=== PATIENT | male | born 1995 | race Caucasian/White ===

== ENCOUNTER 2017-08-04 17:15 | Emergency (ER) | payer BC ==
[~2017-08-04] VITALS: Ht 167.6 cm; Wt 56.4 kg
[2017-08-04 17:19] VITALS: BP 109/62
[2017-08-04] MEDS ORDERED: SULF1TAB49 PO (23:55)
[2017-08-04] MEDS ORDERED: CEPH500C5 PO (23:55)
== END 2017-08-04 23:24 | disposition left against medical advice (07) ==
LOC: ER 17:15
DX: L02.31 Cutaneous abscess of buttock (principal); Z53.21 Procedure and treatment not carried out due to patient leaving prior to being seen by health care provider

== ENCOUNTER 2017-08-04 23:28 | Emergency (ER) | payer BC ==
[~2017-08-04] VITALS: Ht 170.2 cm; Wt 57.0 kg
[2017-08-04 23:32] VITALS: BP 107/70
[2017-08-04] MEDS ORDERED: CEPH500C5 PO (23:55)
[2017-08-04] MEDS ORDERED: SULF1TAB49 PO (23:55)
[2017-08-04] MEDS ORDERED: LIDOcaine 1.5% w/epinephrine 1:200,000 5ml ampul IJ ONE (23:55)
== END 2017-08-05 00:24 | disposition home or self-care (01) ==
LOC: ER 23:29
DX: L02.31 Cutaneous abscess of buttock (principal)
CPT/HCPCS: 10060; 99283; J3490

== ENCOUNTER 2018-01-02 02:23 | Emergency (ER) | payer BC ==
[~2018-01-02] VITALS: Ht 170.2 cm; Wt 42.0 kg
[~2018-01-02 02:23] MED LIST: CEPH500C5 PO
[2018-01-02 02:24] VITALS: BP 109/69
[2018-01-02] MEDS ORDERED: bacitracin 15gm ointment TP ONE (03:05)
[2018-01-02] MEDS ORDERED: LIDOcaine 1.5% w/epinephrine 1:200,000 5ml ampul IJ ONE (03:05)
[2018-01-02] MEDS ORDERED: ondansetron 4mg rapidly disintigrating tab PO ONE (03:10)
[2018-01-02] MEDS ORDERED: doxycycline hyclate 100mg tablet.DR PO ONE (03:10)
[2018-01-02] MEDS ORDERED: DOXYCYCLINE 100MG CAPSULE PO ONE (03:20)
[2018-01-02] MEDS ORDERED: ONDA8TAB9 PO (03:36)
[2018-01-02] MEDS ORDERED: DOXY100C43 PO (03:36)
== END 2018-01-02 03:47 | disposition home or self-care (01) ==
LOC: ER 02:23
DX: L02.415 Cutaneous abscess of right lower limb (principal)
CPT/HCPCS: 10060; 99284; A6402; J3490

== ENCOUNTER 2018-08-06 14:24 | Emergency (ER) | payer BC ==
[~2018-08-06] VITALS: Ht 170.2 cm; Wt 58.0 kg
[~2018-08-06 14:24] MED LIST changes: -CEPH500C5 PO; +ONDA8TAB9 PO
[2018-08-06 14:30] VITALS: BP 101/53
== END 2018-08-06 15:05 | disposition home or self-care (01) ==
LOC: ER 14:24
DX: F15.10 Other stimulant abuse, uncomplicated (principal); F12.90 Cannabis use, unspecified, uncomplicated; F17.210 Nicotine dependence, cigarettes, uncomplicated
CPT/HCPCS: 99281

== ENCOUNTER 2019-09-15 05:50 | Emergency (ER) | payer BC ==
[~2019-09-15] VITALS: Ht 170.2 cm; Wt 63.6 kg
[2019-09-15 05:56] VITALS: BP 126/85
== END 2019-09-15 07:00 | disposition home or self-care (01) ==
LOC: ER 05:51
DX: M79.18 Myalgia, other site (principal); M79.604 Pain in right leg; M79.605 Pain in left leg; F17.200 Nicotine dependence, unspecified, uncomplicated; F15.90 Other stimulant use, unspecified, uncomplicated; Z79.899 Other long term (current) drug therapy
CPT/HCPCS: 99281

== ENCOUNTER 2019-09-23 14:09 | Emergency (ER) | payer BC ==
[~2019-09-23] VITALS: Ht 170.2 cm; Wt 61.4 kg
[2019-09-23 14:17] VITALS: BP 117/61
[2019-09-23] MEDS ORDERED: azithromycin 250mg tablet PO ONE (15:20)
[2019-09-23] MEDS ORDERED: CefTRIAXone 250MG IM Kit w/LIDOcaine IM ONE (15:20)
== END 2019-09-23 15:50 | disposition home or self-care (01) ==
LOC: ER 14:10
DX: A64 Unspecified sexually transmitted disease (principal); R30.0 Dysuria; F15.90 Other stimulant use, unspecified, uncomplicated
CPT/HCPCS: 36415; 87491; 87591; 96372; 99283; J0696

== ENCOUNTER 2019-09-23 19:59 | Emergency (ER) | payer BC ==
[~2019-09-23] VITALS: Ht 170.2 cm; Wt 78.0 kg
--- NOTE | 2019-09-23 20:04 | NUR ---
patient was met at triage. she stated, "My ol Lady made me come because she said my blood pressure was high when I was here. general screening exam occurred in triage.
[2019-09-23 20:06] VITALS: BP 136/92
== END 2019-09-23 20:39 | disposition home or self-care (01) ==
LOC: ER 19:59
DX: Z01.30 Encounter for examination of blood pressure without abnormal findings (principal); F15.90 Other stimulant use, unspecified, uncomplicated
CPT/HCPCS: 99281

== ENCOUNTER 2020-03-19 12:21 | Emergency (ER) | payer BC, MEDICAID ==
[~2020-03-19] VITALS: Ht 170.2 cm; Wt 56.8 kg
[2020-03-19] MEDS ORDERED: PENI500T2 PO (12:33)
[2020-03-19 12:51] VITALS: BP 116/74
== END 2020-03-19 12:53 | disposition home or self-care (01) ==
LOC: ER 12:22
DX: K04.7 Periapical abscess without sinus (principal); F15.10 Other stimulant abuse, uncomplicated; Z79.899 Other long term (current) drug therapy
CPT/HCPCS: 99283

== ENCOUNTER 2020-08-08 21:25 | Emergency (ER) | payer BC, MEDICAID ==
[~2020-08-08] VITALS: Ht 167.6 cm; Wt 54.5 kg
== END 2020-08-08 21:35 | disposition left against medical advice (07) ==
LOC: ER 21:25
DX: R07.89 Other chest pain (principal); R06.02 Shortness of breath; Z53.21 Procedure and treatment not carried out due to patient leaving prior to being seen by health care provider
CPT/HCPCS: 93005

== ENCOUNTER 2020-08-19 03:44 | Inpatient (IN) | payer BC, MEDICAID ==
[~2020-08-19] VITALS: Ht 165.1 cm; Wt 70.0 kg
[2020-08-19] MEDS ORDERED: iohexol 350MG/ML 100ml bottle IV ONE (04:04)
[2020-08-19] MEDS ORDERED: normal saline 1000ML IV soln IVB ONE (04:05)
[2020-08-19] MEDS ORDERED: NO HOME MEDS (04:30)
[2020-08-19 04:38] LABS: D-DIMER 1.47 MG/L FEU (0-0.50); PARTIAL THROMBOPLASTIN TIME 23 SECONDS (22-32)
[2020-08-19 04:40] LABS: ALANINE AMINOTRANSFERASE 55 U/L (12-78); ALBUMIN 3.2 G/DL (3.4-5.0); ALBUMIN/GLOBULIN RATIO 0.9 (1.1-1.5); ALKALINE PHOSPHATASE 77 IU/L (46-116); ANION GAP 11 (8-16); ASPARTATE AMINO TRANSFERASE 23 U/L (10-37); BILIRUBIN,TOTAL 0.5 MG/DL (0.1-1.0); BLOOD UREA NITROGEN 28 MG/DL (7-18); BUN/CREATININE RATIO 18.7 (5.4-32.0); CALCIUM 8.7 MG/DL (8.5-10.1); CHLORIDE 106 MMOL/L (99-107); GLUCOSE 110 MG/DL (70-104); POTASSIUM 3.6 MMOL/L (3.5-5.1); SODIUM 143 MMOL/L (135-145); TOTAL CARBON DIOXIDE 25.9 MMOL/L (24-32); TOTAL PROTEIN 6.6 G/DL (6.4-8.2); eGFR 57 ML/MIN
[2020-08-19 04:47] LABS: BASOPHILS # (AUTO) 0.1 X10'3 (0-0.2); BASOPHILS % (AUTO) 0.6 % (0-1); EOSINOPHILS # (AUTO) 0.1 X10'3 (0-0.9); EOSINOPHILS % (AUTO) 1.1 % (0-6); HEMATOCRIT 50.2 % (42.0-52.0); HEMOGLOBIN 16.5 g/dl (14.0-17.9); LYMPHOCYTES # (AUTO) 3.8 X10'3 (1.1-4.8); LYMPHOCYTES % (AUTO) 32.5 % (21-51); MEAN CORPUSCULAR HEMOGLOBIN 32.7 PG (27.0-31.0); MEAN CORPUSCULAR HGB CONC 32.8 g/dL (33.0-36.5); MEAN CORPUSCULAR VOLUME 99.7 FL (78-98); MEAN PLATELET VOLUME 10.3 FL (7.4-10.4); MONOCYTES # (AUTO) 1.2 X10'3 (0-0.9); MONOCYTES % (AUTO) 9.9 % (2-12); NEUTROPHILS # (AUTO) 6.5 X10'3 (1.8-7.7); NEUTROPHILS % (AUTO) 55.9 % (42-75); PLATELET COUNT 181 X10'3 (140-440); RED BLOOD COUNT 5.03 X10'6 (4.70-6.10); RED CELL DISTRIBUTION WIDTH 13.2 % (11.5-14.5); WHITE BLOOD COUNT 11.6 X10'3 (4.5-11.0)
[2020-08-19] MEDS ORDERED: morphine 4 MG/ML inj SYRINge IV ONE (05:00)
[2020-08-19] MEDS ORDERED: ondansetron/PF 4mg/2ml inj IV ONE (05:00)
[2020-08-19] MEDS ORDERED: nitroGLYCERIN 0.4mg SUBLingual tab SL PRN (05:00)
[2020-08-19] MEDS ORDERED: aspirin 81mg tab.chew PO ONE (05:00)
[2020-08-19] MEDS ORDERED: ondansetron/PF 4mg/2ml inj IV PRN ×2 (06:00→08:20)
[2020-08-19] MEDS ORDERED: LIDOcaine 2% 10ml TOPICAL JELLY (Urojet) TP ONE (06:00)
--- NOTE | 2020-08-19 06:30 | NUR ---
GirlfrienShantal moreno Lizy: [phone] (h); [phone] (c).
--- NOTE | 2020-08-19 07:12 | NUR ---
Called Mortuary Technician Deol for admit orders as none placed by tele-med lead programmer analyst. Dr Desai will address.
[2020-08-19 07:19] LABS: CLARITY,URINE CLEAR (Clear); COLOR,URINE YELLOW (Yellow); GLUCOSE, URINE NEGATIVE (Neg); KETONES,URINE NEGATIVE (Neg); LEUKOCYTE ESTERASE ,URINE NEGATIVE (Neg); NITRITES, URINE NEGATIVE (Neg); OCCULT BLOOD,URINE NEGATIVE (Neg); PROTEIN,URINE NEGATIVE (Neg); UROBILINOGEN,URINE 0.2 E.U/dL (0.2-1.0)
[2020-08-19] MEDS: sodium chloride 0.45% 1,000 ML IV SCH (07:19)
[2020-08-19 07:20] LABS: URINE AMPHETAMINE SCREEN POSITIVE (Neg); URINE BARBITUATE SCREEN NEGATIVE (Neg); URINE BENZODIAZEPINES SCREEN NEGATIVE (Neg); URINE CANNABINOID SCREEN POSITIVE (Neg); URINE COCAINE SCREEN NEGATIVE (Neg); URINE METHADONE SCREEN NEGATIVE (Neg); URINE OPIATE SCREEN POSITIVE (Neg); URINE PHENCYCLIDINE SCREEN NEGATIVE (Neg)
[2020-08-19 07:50] LABS: UA COLLECTION TYPE FOLEY CATH
[2020-08-19] MEDS ORDERED: heparin, porcine 5000 units/ml vial SQ SCH (08:00)
[2020-08-19] MEDS ORDERED: magnesium 4gm in 100ml NS 100 ML IV PRN (08:20)
[2020-08-19] MEDS ORDERED: potassium Cl 20 mEq SR tablet PO PRN ×2 (08:20)
[2020-08-19] MEDS ORDERED: acetaminophen 325mg tablet PO PRN ×2 (08:20)
[2020-08-19] MEDS ORDERED: magnesium hydroxide 30ml (MOM) UD suspension PO PRN (08:20)
[2020-08-19] MEDS ORDERED: normal saline 1000ml 1,000 ML IV SCH (08:20)
[2020-08-19] MEDS ORDERED: albuterol 2.5 MG/3 ML nebule NEB PRN (08:20)
[2020-08-19] MEDS ORDERED: magnesium 2GM in 50ml NS 50 ML IV PRN (08:20)
[2020-08-19] MEDS ORDERED: mag hydrox/Alum hydrox/simeth 30ml oral suspension PO PRN (08:20)
[2020-08-19] MEDS ORDERED: HYDROcodone/acetaminophen 5mg/325mg tablet PO PRN (08:20)
[2020-08-19] MEDS ORDERED: potassium Cl 40MEQ/1/2NS 520ml 520 ML IV PRN ×2 (08:20)
[2020-08-19] MEDS: famotidine/PF 10 mg/ml inj IV SCH (08:21)
[2020-08-19] MEDS ORDERED: CefTRIAXone/D5W-Rocephin 1gm 50 ML IV ONE (09:55)
[2020-08-19 10:06] LABS: LIPASE 60 U/L (73-393)
--- NOTE | 2020-08-19 12:12 | NUR ---
pt's SO Monica updated on status.
[2020-08-19] MEDS ORDERED: vancomycin/NS 1 GM ADD-VANTAGE 250 ML IV ONE (13:00)
[2020-08-19] MEDS ORDERED: VANCOMYCIN 750MG IV in NS 250 ML IV ONE (14:30)
[2020-08-19] MEDS: HYDROcodone/acetaminophen 10/325mg tab PO PRN ×2 (14:46→23:53)
[2020-08-19 15:11] VITALS: BP 102/69
[2020-08-19 15:49] VITALS: BP 104/62
[2020-08-19] MEDS: heparin, porcine 5000 units/ml vial SQ SCH ×2 (16:22→23:55)
--- NOTE | 2020-08-19 18:30 | NUR ---
Patient in room PCU 3012. I have received report from DALE RN and had the opportunity to ask questions and assume patient care.
[2020-08-19 19:00] VITALS: BP 93/49
[2020-08-19] MEDS: K and/or MAG REPLACEMENT MC SCH (19:10)
[2020-08-19] MEDS: lactobacillus rhamnosus 10,000 MMU CELLS/CAPSULE PO SCH (19:47)
[2020-08-19 23:00] VITALS: BP 93/62
[2020-08-20] MEDS: vancomycin/NS 1 GM ADD-VANTAGE 250 ML IV SCH ×2 (01:14→12:41)
[2020-08-20 03:00] VITALS: BP 96/59
[2020-08-20] MEDS: HYDROcodone/acetaminophen 10/325mg tab PO PRN ×3 (04:24→19:15)
[2020-08-20] MEDS: sodium chloride 0.45% 1,000 ML IV SCH ×2 (04:24→22:32)
[2020-08-20 06:00] VITALS: BP 91/47
--- NOTE | 2020-08-20 06:37 | NUR ---
Problems reprioritized. Patient report given, questions answered & plan of care reviewed with VANGIE WATSON.
--- NOTE | 2020-08-20 06:48 | NUR ---
Patient in room PCU 3012. I have received report from Tere WATSON and had the opportunity to ask questions and assume patient care.
[2020-08-20 07:08] LABS: BASOPHILS # (AUTO) 0.1 X10'3 (0-0.2); BASOPHILS % (AUTO) 0.7 % (0-1); EOSINOPHILS # (AUTO) 0.3 X10'3 (0-0.9); EOSINOPHILS % (AUTO) 3.7 % (0-6); HEMATOCRIT 44.3 % (42.0-52.0); HEMOGLOBIN 14.9 g/dl (14.0-17.9); LYMPHOCYTES # (AUTO) 2.7 X10'3 (1.1-4.8); LYMPHOCYTES % (AUTO) 35.3 % (21-51); MEAN CORPUSCULAR HEMOGLOBIN 33.7 PG (27.0-31.0); MEAN CORPUSCULAR HGB CONC 33.7 g/dL (33.0-36.5); MEAN CORPUSCULAR VOLUME 100.2 FL (78-98); MEAN PLATELET VOLUME 9.9 FL (7.4-10.4); MONOCYTES # (AUTO) 0.5 X10'3 (0-0.9); MONOCYTES % (AUTO) 7.3 % (2-12); PLATELET COUNT 162 X10'3 (140-440); RED BLOOD COUNT 4.43 X10'6 (4.70-6.10); RED CELL DISTRIBUTION WIDTH 13.7 % (11.5-14.5); WHITE BLOOD COUNT 7.5 X10'3 (4.5-11.0)
[2020-08-20] MEDS: lactobacillus rhamnosus 10,000 MMU CELLS/CAPSULE PO SCH ×2 (07:23→19:15)
[2020-08-20] MEDS: CefTRIAXone/D5W-Rocephin 1gm 50 ML IV SCH (07:23)
[2020-08-20] MEDS: famotidine/PF 10 mg/ml inj IV SCH (07:23)
[2020-08-20] MEDS: heparin, porcine 5000 units/ml vial SQ SCH ×2 (07:24→16:00)
[2020-08-20 07:29] LABS: ALANINE AMINOTRANSFERASE 41 U/L (12-78); ALBUMIN 2.9 G/DL (3.4-5.0); ALKALINE PHOSPHATASE 61 IU/L (46-116); ANION GAP 7 (8-16); ASPARTATE AMINO TRANSFERASE 13 U/L (10-37); BILIRUBIN,TOTAL 0.6 MG/DL (0.1-1.0); BLOOD UREA NITROGEN 14 MG/DL (7-18); BUN/CREATININE RATIO 15.7 (5.4-32.0); CALCIUM 8.5 MG/DL (8.5-10.1); CHLORIDE 110 MMOL/L (99-107); CHOL/HDL RATIO 3.1 (0.00-4.99); CHOLESTEROL 98 MG/DL (0-200); CREATININE 0.89 MG/DL (0.60-1.10); GLUCOSE 80 MG/DL (70-104); HDL CHOLESTEROL 32 MG/DL (35-60); LDL CHOLESTEROL 63 MG/DL (50-100); MAGNESIUM 1.9 MG/DL (1.5-2.4); POTASSIUM 4.7 MMOL/L (3.5-5.1); SODIUM 143 MMOL/L (135-145); TOTAL CARBON DIOXIDE 26.2 MMOL/L (24-32); TOTAL PROTEIN 5.9 G/DL (6.4-8.2); TRIGLYCERIDES 59 MG/DL (20-135); eGFR > 90 ML/MIN
[2020-08-20] MEDS: K and/or MAG REPLACEMENT MC SCH ×2 (08:00→20:00)
--- NOTE | 2020-08-20 09:41 | NUR ---
Dutta catheter discontinued as ordered. Patient was anxious about the procedure but tolerated. Instructed patient to use urinal when he pee and also encouraged him to void within 6 hours. Addendum: 08/20/20 at 0943 by Jovita Gramajo RN I was assisted by MC Villanueva during removal of dutta catheter.
[2020-08-20 11:00] VITALS: BP 97/55
[2020-08-20] MEDS: nicotine 14mg patch - 24hr TD SCH (12:40)
[2020-08-20 15:00] VITALS: BP 104/64
--- NOTE | 2020-08-20 18:45 | NUR ---
Problems reprioritized. Patient report given, questions answered & plan of care reviewed with Anna Marie WATSON.
--- NOTE | 2020-08-20 18:47 | NUR ---
Patient in room PCU 3012. I have received report from Jovita WATSON and had the opportunity to ask questions and assume patient care. Pt sleeping at this time. No signs of distress, will continue to monitor.
[2020-08-20 19:17] VITALS: BP 105/72
[2020-08-20] MEDS: carVEDilol 3.125mg tablet PO SCH (19:17)
[2020-08-20] MEDS ORDERED: LORazepam 2 mg/ml vial IV ONE (19:55)
[2020-08-20] MEDS ORDERED: diphenhydrAMINE 50 mg/ml inj IV ONE (19:55)
[2020-08-20] MEDS ORDERED: LORazepam 2 mg/ml vial IV PRN (19:55)
[2020-08-21] MEDS ORDERED: VANCOMYCIN LEVEL IV ONE (00:30)
[2020-08-21 01:33] LABS: BASOPHILS # (AUTO) 0.1 X10'3 (0-0.2); BASOPHILS % (AUTO) 0.8 % (0-1); EOSINOPHILS # (AUTO) 0.3 X10'3 (0-0.9); HEMATOCRIT 40.1 % (42.0-52.0); HEMOGLOBIN 13.7 g/dl (14.0-17.9); LYMPHOCYTES # (AUTO) 1.9 X10'3 (1.1-4.8); MEAN CORPUSCULAR HEMOGLOBIN 33.8 PG (27.0-31.0); MEAN CORPUSCULAR HGB CONC 34.1 g/dL (33.0-36.5); MEAN CORPUSCULAR VOLUME 99.2 FL (78-98); MEAN PLATELET VOLUME 9.4 FL (7.4-10.4); MONOCYTES # (AUTO) 0.4 X10'3 (0-0.9); MONOCYTES % (AUTO) 6.8 % (2-12); NEUTROPHILS # (AUTO) 3.5 X10'3 (1.8-7.7); NEUTROPHILS % (AUTO) 56.4 % (42-75); PLATELET COUNT 143 X10'3 (140-440); RED BLOOD COUNT 4.05 X10'6 (4.70-6.10); RED CELL DISTRIBUTION WIDTH 13.2 % (11.5-14.5); WHITE BLOOD COUNT 6.2 X10'3 (4.5-11.0)
[2020-08-21 01:48] LABS: ALANINE AMINOTRANSFERASE 37 U/L (12-78); ALBUMIN 2.8 G/DL (3.4-5.0); ALBUMIN/GLOBULIN RATIO 0.9 (1.1-1.5); ALKALINE PHOSPHATASE 60 IU/L (46-116); ANION GAP 7 (8-16); ASPARTATE AMINO TRANSFERASE 17 U/L (10-37); BILIRUBIN,TOTAL 0.3 MG/DL (0.1-1.0); BLOOD UREA NITROGEN 11 MG/DL (7-18); BUN/CREATININE RATIO 13.8 (5.4-32.0); CALCIUM 8.2 MG/DL (8.5-10.1); CHLORIDE 105 MMOL/L (99-107); GLUCOSE 86 MG/DL (70-104); MAGNESIUM 1.8 MG/DL (1.5-2.4); POTASSIUM 4.2 MMOL/L (3.5-5.1); SODIUM 139 MMOL/L (135-145); TOTAL CARBON DIOXIDE 26.6 MMOL/L (24-32); TOTAL PROTEIN 5.8 G/DL (6.4-8.2); VANCOMYCIN,TROUGH 9.5 UG/ML (6.0-14.0); eGFR > 90 ML/MIN
[2020-08-21] MEDS: HYDROcodone/acetaminophen 10/325mg tab PO PRN ×3 (02:28→23:17)
[2020-08-21] MEDS: vancomycin/NS 1 GM ADD-VANTAGE 250 ML IV SCH (02:30)
[2020-08-21 06:00] VITALS: BP 95/54
--- NOTE | 2020-08-21 06:36 | NUR ---
Problems reprioritized. Patient report given, questions answered & plan of care reviewed with Giuliana WATSON.
[2020-08-21] MEDS: carVEDilol 3.125mg tablet PO SCH ×2 (07:52→20:01)
[2020-08-21] MEDS: famotidine/PF 10 mg/ml inj IV SCH (07:53)
[2020-08-21] MEDS: heparin, porcine 5000 units/ml vial SQ SCH ×4 (07:54→23:19)
[2020-08-21] MEDS: nicotine 14mg patch - 24hr TD SCH (07:55)
[2020-08-21] MEDS: lactobacillus rhamnosus 10,000 MMU CELLS/CAPSULE PO SCH ×2 (07:55→20:01)
[2020-08-21] MEDS: CefTRIAXone/D5W-Rocephin 1gm 50 ML IV SCH (07:55)
[2020-08-21] MEDS: K and/or MAG REPLACEMENT MC SCH ×2 (08:00→20:00)
[2020-08-21 11:00] VITALS: BP 108/66
[2020-08-21] MEDS: VANCOmycin 1250MG/NS 250ml Bag 250 ML IV SCH (13:43)
--- NOTE | 2020-08-21 13:55 | NUR ---
paged Dr Hill "PAGER ID: [phone] MESSAGE: [phone] Mekhi Kerr patient needs lifevest, I have the orders filled out, are you able to sign them? Thank you."
[2020-08-21 15:00] VITALS: BP 109/68
[2020-08-21] MEDS: sodium chloride 0.45% 1,000 ML IV SCH ×2 (17:50→21:02)
[2020-08-21 18:00] VITALS: BP 103/64
--- NOTE | 2020-08-21 18:36 | NUR ---
Problems reprioritized. Patient report given, questions answered & plan of care reviewed with Katherin WATSON.
[2020-08-21 20:01] VITALS: BP 108/63
[2020-08-21 22:00] VITALS: BP 114/73
[2020-08-22] MEDS: VANCOmycin 1250MG/NS 250ml Bag 250 ML IV SCH (00:50)
[2020-08-22 02:00] VITALS: BP 108/52
[2020-08-22 06:00] VITALS: BP 98/54
--- NOTE | 2020-08-22 06:21 | NUR ---
Problems reprioritized. Patient report given, questions answered & plan of care reviewed with WALTER Monsalve.
--- NOTE | 2020-08-22 06:30 | NUR ---
Patient in room PCU 3012. I have received report from WALTER Pandey and had the opportunity to ask questions and assume patient care.
[2020-08-22 06:36] LABS: BASOPHILS # (AUTO) 0.1 X10'3 (0-0.2); EOSINOPHILS # (AUTO) 0.3 X10'3 (0-0.9); EOSINOPHILS % (AUTO) 4.6 % (0-6); HEMATOCRIT 42.1 % (42.0-52.0); HEMOGLOBIN 14.3 g/dl (14.0-17.9); LYMPHOCYTES # (AUTO) 2.8 X10'3 (1.1-4.8); LYMPHOCYTES % (AUTO) 41.1 % (21-51); MEAN CORPUSCULAR HEMOGLOBIN 33.4 PG (27.0-31.0); MEAN CORPUSCULAR HGB CONC 33.9 g/dL (33.0-36.5); MEAN CORPUSCULAR VOLUME 98.6 FL (78-98); MEAN PLATELET VOLUME 9.2 FL (7.4-10.4); MONOCYTES # (AUTO) 0.5 X10'3 (0-0.9); MONOCYTES % (AUTO) 7.6 % (2-12); NEUTROPHILS # (AUTO) 3.1 X10'3 (1.8-7.7); NEUTROPHILS % (AUTO) 45.7 % (42-75); PLATELET COUNT 164 X10'3 (140-440); RED BLOOD COUNT 4.27 X10'6 (4.70-6.10); RED CELL DISTRIBUTION WIDTH 13.2 % (11.5-14.5); WHITE BLOOD COUNT 6.8 X10'3 (4.5-11.0)
--- NOTE | 2020-08-22 06:37 | NUR ---
Patient in room PCU 3012. I have received report from WALTER Vasquez and had the opportunity to ask questions and assume patient care.
[2020-08-22 06:53] LABS: ALANINE AMINOTRANSFERASE 41 U/L (12-78); ALBUMIN 2.7 G/DL (3.4-5.0); ALBUMIN/GLOBULIN RATIO 0.9 (1.1-1.5); ALKALINE PHOSPHATASE 57 IU/L (46-116); ANION GAP 7 (8-16); ASPARTATE AMINO TRANSFERASE 26 U/L (10-37); BILIRUBIN,TOTAL 0.3 MG/DL (0.1-1.0); BLOOD UREA NITROGEN 10 MG/DL (7-18); BUN/CREATININE RATIO 10.9 (5.4-32.0); CALCIUM 8.5 MG/DL (8.5-10.1); CHLORIDE 108 MMOL/L (99-107); CREATININE 0.92 MG/DL (0.60-1.10); GLUCOSE 112 MG/DL (70-104); MAGNESIUM 1.9 MG/DL (1.5-2.4); POTASSIUM 4.1 MMOL/L (3.5-5.1); SODIUM 143 MMOL/L (135-145); TOTAL CARBON DIOXIDE 28.5 MMOL/L (24-32); TOTAL PROTEIN 5.8 G/DL (6.4-8.2); eGFR > 90 ML/MIN
[2020-08-22] MEDS: K and/or MAG REPLACEMENT MC SCH (08:00)
[2020-08-22] MEDS: carVEDilol 3.125mg tablet PO SCH (08:00)
[2020-08-22] MEDS: HYDROcodone/acetaminophen 10/325mg tab PO PRN (08:41)
[2020-08-22] MEDS: nicotine 14mg patch - 24hr TD SCH (08:42)
[2020-08-22] MEDS: famotidine/PF 10 mg/ml inj IV SCH (08:42)
[2020-08-22] MEDS: lactobacillus rhamnosus 10,000 MMU CELLS/CAPSULE PO SCH (08:43)
[2020-08-22] MEDS: CefTRIAXone/D5W-Rocephin 1gm 50 ML IV SCH (08:43)
[2020-08-22] MEDS: heparin, porcine 5000 units/ml vial SQ SCH ×2 (08:43→16:00)
--- NOTE | 2020-08-22 09:08 | NUR ---
notified. PAGER ID: [phone] MESSAGE: RE: Mekhi Kerr. [id number]. Patient is receiving .45% NS at 50ml for his maintaince fluids. Is there any indication for this? thanks. Gricel. [phone].
[2020-08-22] MEDS ORDERED: lisinopril 2.5mg tablet PO SCH (10:05)
[2020-08-22 11:00] VITALS: BP 112/76
--- NOTE | 2020-08-22 13:58 | NUR ---
notified. PAGER ID: [phone] MESSAGE: Re: Mekhi Kerr. [phone]. Life vest people will be fitting him after 1700 today. Thanks. Gricel. [phone].
[2020-08-22] MEDS ORDERED: LACT1CAP26 PO (14:32)
[2020-08-22] MEDS ORDERED: LISI2.5T2 PO (14:32)
[2020-08-22] MEDS ORDERED: ALBU8.5H8 INH (14:32)
[2020-08-22] MEDS ORDERED: COR3.125T PO (14:32)
[2020-08-22 15:00] VITALS: BP 115/76
--- NOTE | 2020-08-22 19:25 | NUR ---
Pt and girlfriend were educated by [employer] personnel ( at 1835) on how to properly use the Lifevest; both verbalized understanding and return demonstration was performed by the pt. Pt is stable to be discharged per MD. Tele monitor was removed by the pt prior to NOC shift. Monitor was returned to telemetry monitor. IV was also discontinued. Staff accompanied the pt to the lobby via wheelchair. Pt belongings were with the pt/girlfriend.
[2020-08-23] MEDS ORDERED: VANCOMYCIN LEVEL IV ONE (00:30)
== END 2020-08-22 19:35 | disposition home or self-care (01) | DRG 918 ==
LOC: ER 03:44 → ED HOLD 08:19 → PCU 3S 14:34
PROVIDERS: ADMIT Family Medicine; ATTEND Family Medicine
DX: T43.621A Poisoning by amphetamines, accidental (unintentional), initial encounter (principal); I42.0 Dilated cardiomyopathy; I24.9 Acute ischemic heart disease, unspecified; N17.9 Acute kidney failure, unspecified; I50.20 Unspecified systolic (congestive) heart failure; F15.10 Other stimulant abuse, uncomplicated; F41.9 Anxiety disorder, unspecified; I25.5 Ischemic cardiomyopathy; I95.9 Hypotension, unspecified; M54.9 Dorsalgia, unspecified; F17.210 Nicotine dependence, cigarettes, uncomplicated; Y92.89 Other specified places as the place of occurrence of the external cause
CPT/HCPCS: 36415; 71045; 71275; 74174; 80053; 80061; 80202; 80305; 81003; 83605; 83690; 83735; 83880; 84145; 84484; 85025; 85379; 85610; 85730; 86885; 86900; 86901; 87040; 87081; 93005; 93306; 93308; 94760; 97116; 97161; 97530; 99291; G0378; J0696; J1200; J1644; J2060; J2270; J2405; J3370; J3490; J7030; J7050; Q9967

== ENCOUNTER 2020-08-22 23:49 | Emergency (ER) | payer BC, MEDICAID ==
[~2020-08-22] VITALS: Ht 170.2 cm; Wt 59.1 kg
[~2020-08-22 23:49] MED LIST changes: +ALBU8.5H8 INH; +COR3.125T PO; +LACT1CAP26 PO; +LISI2.5T2 PO; +NO HOME MEDS
[2020-08-22 23:54] VITALS: BP 123/80
[2020-08-23] MEDS ORDERED: ketorolac trometh inj. 60 MG/2 ML VIAL IM ONE (00:40)
[2020-08-23] MEDS ORDERED: LORazepam 1 MG tablet PO ONE (00:40)
--- NOTE | 2020-08-23 00:50 | NUR ---
PT ASKED TO LEAVE AFTER GETTING HERE BECAUSE HE WANTED TO GO TO BED. I WENT OVER HIS DISCHARGE PAPERWORK WITH HIS THAT HE HAD RECIEVED EARLIER TODAY FROM BEING ADMITTED. PT SAID HIS BACK HURT AND WANTED [place] THAT THEY WERE GIVING HIM WHILE WE WAS ADMITTED. SAW PT AND OFFERED HIM A TORDAL SHOT AND ATIVAN BEFORE HE LEFT AND PT WAS AGREEABLE. I WENT TO GO PULL THE MEDS AND BY THE TIME I GOT BACK TO PT'S ROOM HE HAD LEFT. AND CHARGE MADE AWARE
== END 2020-08-23 00:58 | disposition left against medical advice (07) ==
LOC: ER 23:49
DX: M54.89 Other dorsalgia (principal); G89.29 Other chronic pain; R10.84 Generalized abdominal pain; I50.9 Heart failure, unspecified; F12.90 Cannabis use, unspecified, uncomplicated; F15.90 Other stimulant use, unspecified, uncomplicated; Z79.899 Other long term (current) drug therapy
CPT/HCPCS: 99282

== ENCOUNTER 2020-08-25 05:57 | Emergency (ER) | payer BC, MEDICAID ==
[~2020-08-25 05:57] MED LIST changes: -NO HOME MEDS; -ONDA8TAB9 PO
== END 2020-08-25 08:27 | disposition left against medical advice (07) ==
LOC: ER 05:58
DX: R10.9 Unspecified abdominal pain (principal); Z53.21 Procedure and treatment not carried out due to patient leaving prior to being seen by health care provider

== ENCOUNTER 2021-02-26 15:37 | Emergency (ER) | payer BC, MEDICAID ==
[~2021-02-26] VITALS: Ht 170.2 cm; Wt 59.0 kg
[~2021-02-26 15:37] MED LIST changes: +ALBU8.5H17 INH; -ALBU8.5H8 INH; +LISI2.5T14 PO; -LISI2.5T2 PO
[2021-02-26 15:47] VITALS: BP 108/54
[2021-02-26 16:22] LABS: ALANINE AMINOTRANSFERASE 131 U/L (12-78); ALBUMIN 3.6 G/DL (3.4-5.0); ALBUMIN/GLOBULIN RATIO 1.1 (1.1-1.5); ALKALINE PHOSPHATASE 73 IU/L (46-116); ANION GAP 11 (8-16); ASPARTATE AMINO TRANSFERASE 112 U/L (10-37); BILIRUBIN,TOTAL 0.6 MG/DL (0.1-1.0); BLOOD UREA NITROGEN 13 MG/DL (7-18); BUN/CREATININE RATIO 11.5 (5.4-32.0); CALCIUM 8.9 MG/DL (8.5-10.1); CHLORIDE 110 MMOL/L (99-107); CREATININE 1.13 MG/DL (0.60-1.10); GLUCOSE 96 MG/DL (70-104); POTASSIUM 4.2 MMOL/L (3.5-5.1); SODIUM 146 MMOL/L (135-145); TOTAL CARBON DIOXIDE 24.8 MMOL/L (24-32); TOTAL PROTEIN 6.8 G/DL (6.4-8.2); eGFR 78 ML/MIN
[2021-02-26 16:31] LABS: BASOPHILS # (AUTO) 0.1 X10'3 (0-0.2); BASOPHILS % (AUTO) 1.1 % (0-1); EOSINOPHILS # (AUTO) 0.2 X10'3 (0-0.9); EOSINOPHILS % (AUTO) 1.9 % (0-6); HEMATOCRIT 44.5 % (42.0-52.0); HEMOGLOBIN 15.4 g/dl (14.0-17.9); LYMPHOCYTES # (AUTO) 2.6 X10'3 (1.1-4.8); LYMPHOCYTES % (AUTO) 28.6 % (21-51); MEAN CORPUSCULAR HEMOGLOBIN 33.4 PG (27.0-31.0); MEAN CORPUSCULAR HGB CONC 34.6 g/dL (33.0-36.5); MEAN CORPUSCULAR VOLUME 96.4 FL (78-98); MEAN PLATELET VOLUME 9.9 FL (7.4-10.4); MONOCYTES # (AUTO) 0.6 X10'3 (0-0.9); MONOCYTES % (AUTO) 7.2 % (2-12); NEUTROPHILS # (AUTO) 5.5 X10'3 (1.8-7.7); NEUTROPHILS % (AUTO) 61.2 % (42-75); PLATELET COUNT 183 X10'3 (140-440); RED BLOOD COUNT 4.61 X10'6 (4.70-6.10); RED CELL DISTRIBUTION WIDTH 14.2 % (11.5-14.5)
[2021-02-26 16:34] LABS: MAGNESIUM 2.1 MG/DL (1.5-2.4)
== END 2021-02-26 19:41 | disposition left against medical advice (07) ==
LOC: ER 15:37
DX: R06.02 Shortness of breath (principal); R07.89 Other chest pain; I50.9 Heart failure, unspecified; F12.90 Cannabis use, unspecified, uncomplicated; F15.90 Other stimulant use, unspecified, uncomplicated; Z79.899 Other long term (current) drug therapy; Z53.21 Procedure and treatment not carried out due to patient leaving prior to being seen by health care provider
CPT/HCPCS: 36415; 71045; 80053; 83735; 83880; 84484; 85025; 93005

== ENCOUNTER 2021-03-04 18:17 | Emergency (ER) | payer MEDICAID ==
[~2021-03-04] VITALS: Ht 170.2 cm; Wt 59.1 kg
[2021-03-04 18:31] VITALS: BP 104/62
--- NOTE | 2021-03-04 20:30 | NUR ---
NOT IN LOBBY
--- NOTE | 2021-03-04 21:00 | NUR ---
NOT IN LOBBY
--- NOTE | 2021-03-04 22:00 | NUR ---
NOT IN LOBBY
== END 2021-03-05 02:28 | disposition left against medical advice (07) ==
LOC: ER 18:18
DX: R10.9 Unspecified abdominal pain (principal); Z53.21 Procedure and treatment not carried out due to patient leaving prior to being seen by health care provider

== ENCOUNTER 2021-05-15 17:41 | Emergency (ER) | payer MEDICAID | END 2021-05-15 19:02 | disposition left against medical advice (07) | LOC: ER 17:47 | DX: Z53.21 Procedure and treatment not carried out due to patient leaving prior to being seen by health care provider (principal) ==

== ENCOUNTER 2021-07-02 10:08 | Outpatient (CLI) | payer MEDICAID | END 2021-07-02 23:59 | disposition home or self-care (01) | LOC: CARD DIAG 10:08 | PROVIDERS: ATTEND Nurse Practitioner Family | DX: I08.1 Rheumatic disorders of both mitral and tricuspid valves (principal); I50.9 Heart failure, unspecified | CPT/HCPCS: 93306 ==

== ENCOUNTER 2022-06-03 09:11 | Emergency (ER) | payer MEDICAID ==
[~2022-06-03] VITALS: Ht 170.2 cm; Wt 56.8 kg
[2022-06-03 09:19] VITALS: BP 136/79
[2022-06-03] MEDS ORDERED: proparacaine 0.5% ophthalmic drops 15ml EACHEYE ONE (09:35)
[2022-06-03] MEDS ORDERED: TOBR5DRO2 RIGHTEYE (09:55)
== END 2022-06-03 10:16 | disposition home or self-care (01) ==
LOC: ER 09:12
DX: T15.02XA Foreign body in cornea, left eye, initial encounter (principal); T15.01XA Foreign body in cornea, right eye, initial encounter; I50.9 Heart failure, unspecified; F12.90 Cannabis use, unspecified, uncomplicated; F15.90 Other stimulant use, unspecified, uncomplicated; Z79.899 Other long term (current) drug therapy; X58.XXXA Exposure to other specified factors, initial encounter; Y93.89 Activity, other specified; Y92.89 Other specified places as the place of occurrence of the external cause; Y99.8 Other external cause status
CPT/HCPCS: 65222; 99284

== ENCOUNTER 2022-06-03 19:02 | Emergency (ER) | payer MEDICAID ==
[~2022-06-03] VITALS: Ht 170.2 cm; Wt 50.6 kg
[~2022-06-03 19:02] MED LIST changes: +TOBR5DRO2 RIGHTEYE
[2022-06-03 19:12] VITALS: BP 119/95
[2022-06-03] MEDS ORDERED: tobramycin/dexamethasone ophthalmic suspension EACHEYE ONE (21:20)
== END 2022-06-03 21:49 | disposition home or self-care (01) ==
LOC: ER 19:02
DX: S05.02XA Injury of conjunctiva and corneal abrasion without foreign body, left eye, initial encounter (principal); S05.01XA Injury of conjunctiva and corneal abrasion without foreign body, right eye, initial encounter; I50.9 Heart failure, unspecified; F12.90 Cannabis use, unspecified, uncomplicated; F15.20 Other stimulant dependence, uncomplicated; X58.XXXA Exposure to other specified factors, initial encounter; Y93.89 Activity, other specified; Y92.89 Other specified places as the place of occurrence of the external cause; Y99.8 Other external cause status
CPT/HCPCS: 99282

== ENCOUNTER 2022-09-07 09:21 | Inpatient (IN) | payer MEDICAID ==
[~2022-09-07] VITALS: Ht 172.7 cm; Wt 52.3 kg
[2022-09-07 09:58] LABS: BASOPHILS % (AUTO) 0.5 % (0-1); EOSINOPHILS # (AUTO) 0.1 X10'3 (0-0.9); EOSINOPHILS % (AUTO) 1.6 % (0-6); HEMATOCRIT 42.1 % (42.0-52.0); HEMOGLOBIN 14.2 g/dl (14.0-17.9); MEAN CORPUSCULAR HEMOGLOBIN 33.5 PG (27.0-31.0); MEAN CORPUSCULAR HGB CONC 33.6 g/dL (33.0-36.5); MEAN CORPUSCULAR VOLUME 99.8 FL (78-98); MEAN PLATELET VOLUME 9.4 FL (7.4-10.4); MONOCYTES # (AUTO) 0.5 X10'3 (0-0.9); MONOCYTES % (AUTO) 6.4 % (2-12); NEUTROPHILS # (AUTO) 6.8 X10'3 (1.8-7.7); NEUTROPHILS % (AUTO) 79.5 % (42-75); PLATELET COUNT 93 X10'3 (140-440); RED BLOOD COUNT 4.22 X10'6 (4.70-6.10); RED CELL DISTRIBUTION WIDTH 13.3 % (11.5-14.5); WHITE BLOOD COUNT 8.5 X10'3 (4.5-11.0)
[2022-09-07] MEDS ORDERED: nitroGLYCERIN-Tridil 50MG/D5W 250 ML IV PRN (10:00)
[2022-09-07] MEDS ORDERED: aspirin 81mg tab.chew PO ONE (10:00)
[2022-09-07 10:11] LABS: ALANINE AMINOTRANSFERASE 43 U/L (12-78); ALBUMIN 3.3 G/DL (3.4-5.0); ALKALINE PHOSPHATASE 72 IU/L (46-116); ANION GAP 2 (8-16); ASPARTATE AMINO TRANSFERASE 28 U/L (10-37); BILIRUBIN,TOTAL 0.5 MG/DL (0.1-1.0); BLOOD UREA NITROGEN 11 MG/DL (7-18); BUN/CREATININE RATIO 11.2 (10.0-20.0); CHLORIDE 109 MMOL/L (99-107); CREATININE 0.98 MG/DL (0.60-1.10); GLUCOSE 84 MG/DL (70-104); POTASSIUM 4.4 MMOL/L (3.5-5.1); SODIUM 138 MMOL/L (135-145); TOTAL CARBON DIOXIDE 27.1 MMOL/L (24-32); TOTAL PROTEIN 6.5 G/DL (6.4-8.2); eGFR > 90 ML/MIN
[2022-09-07] MEDS ORDERED: heparin 10,000 units/1 ML INJ IV ONE ×2 (10:25→10:30)
[2022-09-07] MEDS ORDERED: heparin 25,000 UNIT/250ml bag 250 ML IV PRN (10:25)
[2022-09-07] MEDS ORDERED: heparin 10,000 units/1 ML INJ IV PRN (10:30)
[2022-09-07] MEDS ORDERED: iohexol 350MG/ML 100ml bottle IV ONE (10:34)
--- NOTE | 2022-09-07 10:40 | NUR ---
Met with patient in regards to substance use and to see if patient was interested in resources for treatment options. Patient is interested in both in and out patient services. Gave patient [facility] info to start that process, a list of treatment facilities, [facility] information and my card to call me with any questions.
[2022-09-07 11:06] LABS: APTT 26 SECONDS (22-32)
[2022-09-07] MEDS ORDERED: furosemide 10 MG/1 ML 10ml inj IV ONE (11:15)
[2022-09-07] MEDS ORDERED: furosemide 20 MG/2 ML vial IV ONE (11:20)
[2022-09-07] MEDS ORDERED: CARV3.122 PO (12:09)
[2022-09-07] MEDS ORDERED: LISI2.5T14 PO (12:09)
[2022-09-07 13:02] LABS: CLARITY,URINE CLEAR (Clear); COLOR,URINE STRAW (Yellow); GLUCOSE, URINE NEGATIVE (Neg); KETONES,URINE NEGATIVE (Neg); LEUKOCYTE ESTERASE ,URINE NEGATIVE (Neg); NITRITES, URINE NEGATIVE (Neg); OCCULT BLOOD,URINE NEGATIVE (Neg); PROTEIN,URINE NEGATIVE (Neg); UROBILINOGEN,URINE 0.2 E.U/dL (0.2-1.0)
[2022-09-07] MEDS ORDERED: diphenhydrAMINE 25mg capsule PO PRN (13:30)
[2022-09-07] MEDS ORDERED: magnesium Cl slow-release 64mg tablet PO PRN (13:30)
[2022-09-07] MEDS ORDERED: magnesium hydroxide 30ml (MOM) UD suspension PO PRN (13:30)
[2022-09-07] MEDS ORDERED: mag hydrox/Alum hydrox/simeth 30ml oral suspension PO PRN (13:30)
[2022-09-07] MEDS ORDERED: acetaminophen 325mg tablet PO PRN ×2 (13:30)
[2022-09-07] MEDS ORDERED: acetaminophen 650mg rectal suppository RC PRN (13:30)
[2022-09-07] MEDS ORDERED: potassium Cl 40MEQ/1/2NS 520ml 520 ML IV PRN (13:30)
[2022-09-07] MEDS ORDERED: HYDROcodone/acetaminophen 5mg/325mg tablet PO PRN (13:30)
[2022-09-07] MEDS ORDERED: morphine 2 MG/ML inj. syringe IV PRN ×2 (13:30)
[2022-09-07] MEDS ORDERED: magnesium 2GM in 50ml NS 50 ML IV PRN (13:30)
[2022-09-07] MEDS: normal saline 1000ml 1,000 ML IV SCH (13:30)
[2022-09-07] MEDS ORDERED: magnesium 4gm in 100ml NS 100 ML IV PRN (13:30)
[2022-09-07] MEDS ORDERED: potassium Cl 20 mEq SR tablet PO PRN ×2 (13:30)
[2022-09-07] MEDS ORDERED: PERFLUTREN PROTEIN-A MICROSPHR (Optison) 0.22 MG/ML 3ML VIAL IV ONE (13:30)
[2022-09-07] MEDS ORDERED: HYDROcodone/acetaminophen 10/325mg tab PO PRN (13:30)
[2022-09-07] MEDS ORDERED: bisacodyl 10mg suppository rectal RC PRN (13:30)
[2022-09-07 13:33] LABS: UA COLLECTION TYPE VOIDED
[2022-09-07 14:48] LABS: HEMOGLOBIN A1C 6.1 % (4.5-6.2)
[2022-09-07 14:49] LABS: URINE AMPHETAMINE SCREEN POSITIVE (Neg); URINE BARBITUATE SCREEN NEGATIVE (Neg); URINE BENZODIAZEPINES SCREEN NEGATIVE (Neg); URINE CANNABINOID SCREEN POSITIVE (Neg); URINE COCAINE SCREEN NEGATIVE (Neg); URINE METHADONE SCREEN NEGATIVE (Neg); URINE OPIATE SCREEN POSITIVE (Neg); URINE PHENCYCLIDINE SCREEN NEGATIVE (Neg)
[2022-09-07 15:00] VITALS: BP 141/97
--- NOTE | 2022-09-07 17:40 | NUR ---
PAGE SENT Message: [id number], VILMA PAUL, CRITICAL LAB: [facility] PTT 121. HEPARIN STOPPED. THANK YOU, ANDRES Beckham [phone]
--- NOTE | 2022-09-07 18:25 | NUR ---
Problems reprioritized. Patient report given, questions answered & plan of care reviewed with WALTER GARG.
[2022-09-07 18:30] VITALS: BP 137/100
[2022-09-07] MEDS: K and/or MAG REPLACEMENT MC SCH (20:00)
[2022-09-07] MEDS: carVEDilol 3.125mg tablet PO SCH (20:00)
[2022-09-07] MEDS: docusate sod 100mg capsule PO SCH (20:00)
[2022-09-07] MEDS: furosemide 40mg/4ml inj IV SCH (20:02)
[2022-09-07 23:00] VITALS: BP 133/84
[2022-09-08 02:30] VITALS: BP 136/94
[2022-09-08] MEDS: normal saline 1000ml 1,000 ML IV SCH (03:07)
--- NOTE | 2022-09-08 06:19 | NUR ---
Patient in room PCU 3018. I have received report from Dallas WATSON and had the opportunity to ask questions and assume patient care.
--- NOTE | 2022-09-08 06:45 | NUR ---
Problems reprioritized. Patient report given, questions answered & plan of care reviewed with Jacques WATSON.
[2022-09-08 07:00] VITALS: BP 136/98
[2022-09-08] MEDS: ondansetron/PF 4mg/2ml inj IV PRN ×2 (07:10→13:09)
[2022-09-08 07:48] LABS: BASOPHILS % (AUTO) 0.6 % (0-1); EOSINOPHILS # (AUTO) 0.1 X10'3 (0-0.9); HEMOGLOBIN 16.6 g/dl (14.0-17.9); LYMPHOCYTES # (AUTO) 1.5 X10'3 (1.1-4.8); MEAN CORPUSCULAR HEMOGLOBIN 33.2 PG (27.0-31.0); MEAN CORPUSCULAR HGB CONC 33.9 g/dL (33.0-36.5); MEAN PLATELET VOLUME 10.6 FL (7.4-10.4); MONOCYTES # (AUTO) 0.9 X10'3 (0-0.9); MONOCYTES % (AUTO) 13.3 % (2-12); NEUTROPHILS # (AUTO) 4.1 X10'3 (1.8-7.7); NEUTROPHILS % (AUTO) 62.1 % (42-75); PLATELET COUNT 101 X10'3 (140-440); RED CELL DISTRIBUTION WIDTH 13.3 % (11.5-14.5); WHITE BLOOD COUNT 6.5 X10'3 (4.5-11.0)
[2022-09-08] MEDS ORDERED: lisinopril 2.5mg tablet PO SCH (08:00)
[2022-09-08] MEDS: docusate sod 100mg capsule PO SCH (08:00)
[2022-09-08] MEDS: K and/or MAG REPLACEMENT MC SCH (08:00)
[2022-09-08 08:13] LABS: LARGE PLATELETS FEW; PLATELET ESTIMATE DECREASED
[2022-09-08 08:18] LABS: ALANINE AMINOTRANSFERASE 36 U/L (12-78); ALBUMIN 3.5 G/DL (3.4-5.0); ALKALINE PHOSPHATASE 86 IU/L (46-116); ANION GAP 9 (8-16); ASPARTATE AMINO TRANSFERASE 27 U/L (10-37); BILIRUBIN,TOTAL 0.7 MG/DL (0.1-1.0); BLOOD UREA NITROGEN 11 MG/DL (7-18); BUN/CREATININE RATIO 9.3 (10.0-20.0); CHLORIDE 98 MMOL/L (99-107); CHOL/HDL RATIO 2.8 (0.00-4.99); CHOLESTEROL 109 MG/DL (0-200); CREATININE 1.18 MG/DL (0.60-1.10); GLUCOSE 82 MG/DL (70-104); HDL CHOLESTEROL 39 MG/DL (35-60); LDL CHOLESTEROL 62 MG/DL (50-100); MAGNESIUM 1.7 MG/DL (1.5-2.4); PHOSPHORUS 5.2 MG/DL (2.3-4.5); POTASSIUM 4.2 MMOL/L (3.5-5.1); SODIUM 135 MMOL/L (135-145); TOTAL CARBON DIOXIDE 27.8 MMOL/L (24-32); TRIGLYCERIDES 34 MG/DL (20-135); eGFR 74 ML/MIN
[2022-09-08] MEDS ORDERED: aspirin 81mg tab.chew PO SCH (08:30)
[2022-09-08] MEDS: carVEDilol 3.125mg tablet PO SCH (08:42)
[2022-09-08] MEDS: furosemide 40mg/4ml inj IV SCH (08:42)
[2022-09-08] MEDS ORDERED: diltiazem CD 120mg capsule (once-daily) PO SCH (09:15)
[2022-09-08 11:00] VITALS: BP 106/71
--- NOTE | 2022-09-08 12:22 | NUR ---
Message: Cirilo [id number], Pt was on Lasix 40 BID IV but it was cancelled this morning. Did you still want him on Lasix or no? Jacques [phone]
--- NOTE | 2022-09-08 13:06 | NUR ---
Noted pt with a low BMI of 17.5 using scaled wt of 52.27 kg. Malnutrition risk screen with RN pending at this time. Attempted visit with pt at bedside however pt unavailable with curtains pulled closed. Most recent scaled wt hx in EMR is 50.6 kg 2/1, no apparent wt loss. Noted pt documented as 67" at most visits making current BMI 18, still underweight. Pt on a heart healthy diet and eating poorly, documented with refusal of first meal and with 75% PO intake of starch only at second meal. Noted tox screen positive for opiates, amphetamines, and cannabinoids, likely impacting PO intake at this time. Pt with no documented decrease in muscle strength or edema and per ED report pt appears well developed well nourished. Pt currently lacks a minimum of two criteria for malnutrition. Will continue to follow and monitor malnutrition criteria. Addendum: 09/08/22 at [address] Amended: Links added.
--- NOTE | 2022-09-08 15:18 | NUR ---
Message: Cirilo [id number], Pt wants to leave AMA. I told him he should stay but he said he's leaving, signing form now. Jacques [phone]
--- NOTE | 2022-09-08 15:43 | NUR ---
Pt wanted to leave AMA after talking to social work. I told pt he would be better served if he stayed and followed through with treatment, however pt stated he wanted to leave and that he didn't want to stay. He stated his grandmother was on her way to pick him up already. I had him sign the AMA form and removed him from IV and tele. I walked him to the elevated and he went down to the lobby.
[2022-09-08] MEDS ORDERED: heparin, porcine 5000 units/ml vial SQ SCH (20:00)
== END 2022-09-08 15:27 | disposition left against medical advice (07) | DRG 205 ==
LOC: ER 09:22 → ED HOLD 13:29 → PCU 3S 15:00
PROVIDERS: ADMIT Family Medicine; ATTEND Family Medicine
PROC: B32T1ZZ Computerized Tomography (CT Scan) of Left Pulmonary Artery using Low Osmolar Contrast (ICD-10-PCS; principal; 2022-09-07)
PROC: B3201ZZ Computerized Tomography (CT Scan) of Thoracic Aorta using Low Osmolar Contrast (ICD-10-PCS; 2022-09-07)
PROC: B32S1ZZ Computerized Tomography (CT Scan) of Right Pulmonary Artery using Low Osmolar Contrast (ICD-10-PCS; 2022-09-07)
PROC: B4201ZZ Computerized Tomography (CT Scan) of Abdominal Aorta using Low Osmolar Contrast (ICD-10-PCS; 2022-09-07)
DX: I42.7 Cardiomyopathy due to drug and external agent (principal); J96.20 Acute and chronic respiratory failure, unspecified whether with hypoxia or hypercapnia; I50.43 Acute on chronic combined systolic (congestive) and diastolic (congestive) heart failure; I42.0 Dilated cardiomyopathy; I11.0 Hypertensive heart disease with heart failure; F15.20 Other stimulant dependence, uncomplicated; I20.0 Unstable angina; F17.210 Nicotine dependence, cigarettes, uncomplicated; I07.1 Rheumatic tricuspid insufficiency; I25.5 Ischemic cardiomyopathy; Z53.29 Procedure and treatment not carried out because of patient's decision for other reasons; Z79.899 Other long term (current) drug therapy; Z91.148 Patient's other noncompliance with medication regimen for other reason; I25.2 Old myocardial infarction; Z71.51 Drug abuse counseling and surveillance of drug abuser; Z71.6 Tobacco abuse counseling; Y92.89 Other specified places as the place of occurrence of the external cause
CPT/HCPCS: 36415; 71045; 71275; 74174; 80053; 80061; 80305; 81003; 83036; 83735; 83880; 84100; 84484; 85008; 85025; 85730; 87081; 87088; 93005; 93308; 93325; 99285; G0378; J1644; J1940; J2405; J3490; J7030; Q9967

== ENCOUNTER 2022-09-16 22:48 | Emergency (ER) | payer MEDICAID ==
[~2022-09-16 22:48] MED LIST changes: -ALBU8.5H17 INH; +CARV3.122 PO; -COR3.125T PO; -LACT1CAP26 PO; -TOBR5DRO2 RIGHTEYE
== END 2022-09-16 22:55 | disposition left against medical advice (07) ==
LOC: ER 22:48
DX: M79.603 Pain in arm, unspecified (principal); Z53.21 Procedure and treatment not carried out due to patient leaving prior to being seen by health care provider

== ENCOUNTER 2023-12-06 10:14 | Emergency (ER) | payer MEDICAID ==
[~2023-12-06] VITALS: Ht 170.2 cm; Wt 62.8 kg
[2023-12-06 10:35] LABS: BASOPHILS # (AUTO) 0.1 X10'3 (0-0.2); EOSINOPHILS # (AUTO) 0.2 X10'3 (0-0.9); HEMOGLOBIN 14.8 g/dl (14.0-17.9); MONOCYTES # (AUTO) 0.9 X10'3 (0-0.9); NEUTROPHILS # (AUTO) 5.4 X10'3 (1.8-7.7)
[2023-12-06 10:36] LABS: BASOPHILS % (AUTO) 0.7 % (0-1); EOSINOPHILS % (AUTO) 1.9 % (0-6); LYMPHOCYTES % (AUTO) 31.2 % (21-51); MEAN CORPUSCULAR HGB CONC 34.4 g/dL (33.0-36.5); MEAN CORPUSCULAR VOLUME 101.8 FL (78-98); MEAN PLATELET VOLUME 9.1 FL (7.4-10.4); MONOCYTES % (AUTO) 9.2 % (2-12); PLATELET COUNT 145 X10'3 (140-440); RED BLOOD COUNT 4.23 X10'6 (4.70-6.10); RED CELL DISTRIBUTION WIDTH 14.5 % (11.5-14.5); WHITE BLOOD COUNT 9.5 X10'3 (4.5-11.0)
[2023-12-06 11:00] LABS: ALANINE AMINOTRANSFERASE 77 U/L (12-78); ALBUMIN 3.6 G/DL (3.4-5.0); ALBUMIN/GLOBULIN RATIO 0.9 (1.1-1.5); ALKALINE PHOSPHATASE 103 IU/L (46-116); ANION GAP 4 (8-16); ASPARTATE AMINO TRANSFERASE 41 U/L (10-37); BILIRUBIN,TOTAL 0.6 MG/DL (0.1-1.0); BLOOD UREA NITROGEN 32 MG/DL (7-18); BUN/CREATININE RATIO 24.6 (10.0-20.0); CALCIUM 8.9 MG/DL (8.5-10.1); CHLORIDE 105 MMOL/L (99-107); GLUCOSE 114 MG/DL (70-104); POTASSIUM 4.6 MMOL/L (3.5-5.1); SODIUM 138 MMOL/L (135-145); TOTAL CARBON DIOXIDE 28.7 MMOL/L (24-32); TOTAL PROTEIN 7.4 G/DL (6.4-8.2); eCRCL 75 ML/MIN; eGFR 66 ML/MIN
[2023-12-06 11:09] LABS: PRO BRAIN NATRIURETIC PEPTIDE 5285 PG/ML (0-125)
[2023-12-06 16:00] VITALS: BP 139/110; PULSE 76; RESP 16; TEMP 97.6; O2SAT 98
== END 2023-12-06 16:03 | disposition home or self-care (01) ==
LOC: ER 10:15
DX: R07.9 Chest pain, unspecified (principal); I50.9 Heart failure, unspecified; F12.90 Cannabis use, unspecified, uncomplicated; F15.90 Other stimulant use, unspecified, uncomplicated; R63.5 Abnormal weight gain; R07.89 Other chest pain; R06.09 Other forms of dyspnea; R06.01 Orthopnea; Z79.899 Other long term (current) drug therapy
CPT/HCPCS: 36415; 71045; 80053; 83880; 84484; 85025; 93005; 99285

== ENCOUNTER 2023-12-08 06:31 | Inpatient (IN) | payer MEDICAID ==
[~2023-12-08] VITALS: Ht 170.2 cm; Wt 62.9 kg
[2023-12-08 07:08] LABS: BASOPHILS # (AUTO) 0.1 X10'3 (0-0.2); BASOPHILS % (AUTO) 1.4 % (0-1); EOSINOPHILS # (AUTO) 0.2 X10'3 (0-0.9); EOSINOPHILS % (AUTO) 1.9 % (0-6); HEMATOCRIT 45.5 % (42.0-52.0); HEMOGLOBIN 15.2 g/dl (14.0-17.9); LYMPHOCYTES # (AUTO) 3.6 X10'3 (1.1-4.8); LYMPHOCYTES % (AUTO) 36.4 % (21-51); MEAN CORPUSCULAR HGB CONC 33.3 g/dL (33.0-36.5); MEAN PLATELET VOLUME 8.9 FL (7.4-10.4); MONOCYTES % (AUTO) 9.8 % (2-12); NEUTROPHILS % (AUTO) 50.5 % (42-75); PLATELET COUNT 138 X10'3 (140-440); RED BLOOD COUNT 4.46 X10'6 (4.70-6.10); WHITE BLOOD COUNT 9.9 X10'3 (4.5-11.0)
[2023-12-08 07:34] LABS: ALBUMIN 3.6 G/DL (3.4-5.0); ANION GAP 5 (8-16); BLOOD UREA NITROGEN 19 MG/DL (7-18); BUN/CREATININE RATIO 18.4 (10.0-20.0); CALCIUM 8.8 MG/DL (8.5-10.1); CHLORIDE 108 MMOL/L (99-107); CREATININE 1.03 MG/DL (0.60-1.10); GLUCOSE 74 MG/DL (70-104); PRO BRAIN NATRIURETIC PEPTIDE 6300 PG/ML (0-125); SODIUM 139 MMOL/L (135-145); TOTAL CARBON DIOXIDE 25.9 MMOL/L (24-32); eCRCL 95 ML/MIN; eGFR 86 ML/MIN
[2023-12-08] MEDS: metoclopramide 10mg tablet PO ONE (08:12)
[2023-12-08] MEDS: aspirin 81mg tab.chew PO ONE (08:12)
[2023-12-08] MEDS ORDERED: magnesium sulf-water 2g/50mL 50 ML IV PRN (11:25)
[2023-12-08] MEDS ORDERED: acetaminophen 325mg tablet PO PRN (11:25)
[2023-12-08] MEDS ORDERED: magnesium sulf-water 4G/100mL 100 ML IV PRN (11:25)
[2023-12-08] MEDS ORDERED: albuterol 2.5 MG/3 ML nebule NEB PRN (11:25)
[2023-12-08] MEDS ORDERED: mag hydrox/Alum hydrox/simeth 30ml oral suspension PO PRN (11:25)
[2023-12-08] MEDS ORDERED: ondansetron/PF 4mg/2ml inj IV PRN (11:25)
[2023-12-08] MEDS ORDERED: potassium Cl 20 mEq SR tablet PO PRN ×2 (11:25)
[2023-12-08] MEDS ORDERED: potassium Cl 40MEQ/1/2NS 520ml 520 ML IV PRN (11:25)
[2023-12-08] MEDS ORDERED: magnesium hydroxide 30ml (MOM) UD suspension PO PRN (11:25)
[2023-12-08] MEDS ORDERED: LISI2.5T14 PO (11:35)
[2023-12-08] MEDS ORDERED: CARV3.12 PO (11:35)
[2023-12-08] MEDS: PERFLUTREN PROTEIN-A MICROSPHR (Optison) 0.22 MG/ML 3ML VIAL IV ONE (11:40)
[2023-12-08 11:49] VITALS: PULSE 72; RESP 14; O2SAT 100
[2023-12-08] MEDS ORDERED: NICO-631 TOP (16:40)
[2023-12-08 17:44] VITALS: BP 131/94; PULSE 82; RESP 12; TEMP 97.5; O2SAT 98
[2023-12-08 17:48] VITALS: RESP 14; O2SAT 98
[2023-12-08] MEDS: K and/or MAG REPLACEMENT MC SCH (20:00)
[2023-12-08] MEDS: ipratropium/albuterol 3ml nebule NEB PRN (20:11)
[2023-12-08 20:15] VITALS: PULSE 77; RESP 16; O2SAT 98
[2023-12-08 20:19] VITALS: PULSE 86; RESP 16
[2023-12-08] MEDS: nitroGLYCERIN 0.4mg SUBLingual tab SL PRN (20:34)
[2023-12-08] MEDS: docusate sod 100mg capsule PO SCH (20:50)
[2023-12-08] MEDS: furosemide 20 MG/2 ML vial IV SCH (20:51)
[2023-12-08] MEDS: carVEDilol 3.125mg tablet PO SCH (20:51)
[2023-12-08] MEDS: enoxaparin 40mg/0.4ml syringe SQ SCH (20:51)
[2023-12-08] MEDS: pantoprazole 40mg Tablet.DR PO SCH (20:51)
[2023-12-08 22:28] VITALS: BP 133/99; PULSE 96; RESP 16; TEMP 98.3; O2SAT 99
[2023-12-09] VITALS (10 sets, daily range): BP systolic 116–146; BP diastolic 85–110; PULSE 67–96; RESP 12–18; TEMP 96.8–98.6; O2SAT 97–100
[2023-12-09 05:46] LABS: BASOPHILS # (AUTO) 0.1 X10'3 (0-0.2); BASOPHILS % (AUTO) 0.8 % (0-1); EOSINOPHILS # (AUTO) 0.3 X10'3 (0-0.9); HEMATOCRIT 46.3 % (42.0-52.0); HEMOGLOBIN 15.7 g/dl (14.0-17.9); LYMPHOCYTES # (AUTO) 3.4 X10'3 (1.1-4.8); LYMPHOCYTES % (AUTO) 37.6 % (21-51); MEAN CORPUSCULAR HEMOGLOBIN 34.5 PG (27.0-31.0); MEAN CORPUSCULAR HGB CONC 33.9 g/dL (33.0-36.5); MEAN CORPUSCULAR VOLUME 101.8 FL (78-98); MEAN PLATELET VOLUME 9.6 FL (7.4-10.4); MONOCYTES # (AUTO) 0.8 X10'3 (0-0.9); NEUTROPHILS # (AUTO) 4.5 X10'3 (1.8-7.7); NEUTROPHILS % (AUTO) 49.6 % (42-75); PLATELET COUNT 146 X10'3 (140-440); RED BLOOD COUNT 4.55 X10'6 (4.70-6.10); RED CELL DISTRIBUTION WIDTH 14.7 % (11.5-14.5); WHITE BLOOD COUNT 9.1 X10'3 (4.5-11.0)
[2023-12-09 06:01] LABS: ALANINE AMINOTRANSFERASE 58 U/L (12-78); ALBUMIN/GLOBULIN RATIO 0.9 (1.1-1.5); ALKALINE PHOSPHATASE 86 IU/L (46-116); ANION GAP 8 (8-16); ASPARTATE AMINO TRANSFERASE 35 U/L (10-37); BLOOD UREA NITROGEN 22 MG/DL (7-18); BUN/CREATININE RATIO 20.8 (10.0-20.0); CHLORIDE 107 MMOL/L (99-107); CREATININE 1.06 MG/DL (0.60-1.10); GLUCOSE 80 MG/DL (70-104); POTASSIUM 4.2 MMOL/L (3.5-5.1); SODIUM 140 MMOL/L (135-145); TOTAL PROTEIN 6.4 G/DL (6.4-8.2); eCRCL 92 ML/MIN; eGFR 83 ML/MIN
[2023-12-09] MEDS: EMPAGLIFLOZIN 25 MG TABLET PO SCH (07:50)
[2023-12-09] MEDS: nicotine 14mg patch - 24hr TD SCH (07:50)
[2023-12-09] MEDS: lisinopril 2.5mg tablet PO SCH (08:00)
[2023-12-09] MEDS: spironolactone 25 MG tablet PO SCH (09:14)
[2023-12-09] MEDS ORDERED: Melatonin 3mg tablet PO PRN (21:05)
[2023-12-09] MEDS: LORazepam 1 MG tablet PO ONE (22:57)
[2023-12-09] MEDS: haloperidol lactate 5mg/ml inj IM ONE (23:40)
[2023-12-10] VITALS (8 sets, daily range): BP systolic 108–130; BP diastolic 76–88; PULSE 63–70; RESP 13–20; TEMP 96.8–98.1; O2SAT 97–99
[2023-12-10 08:02] LABS: BASOPHILS # (AUTO) 0.1 X10'3 (0-0.2); BASOPHILS % (AUTO) 0.9 % (0-1); EOSINOPHILS # (AUTO) 0.3 X10'3 (0-0.9); EOSINOPHILS % (AUTO) 2.7 % (0-6); HEMATOCRIT 50.8 % (42.0-52.0); HEMOGLOBIN 17.4 g/dl (14.0-17.9); LYMPHOCYTES # (AUTO) 2.9 X10'3 (1.1-4.8); LYMPHOCYTES % (AUTO) 29.4 % (21-51); MEAN CORPUSCULAR HEMOGLOBIN 34.6 PG (27.0-31.0); MEAN CORPUSCULAR HGB CONC 34.3 g/dL (33.0-36.5); MEAN CORPUSCULAR VOLUME 100.9 FL (78-98); MEAN PLATELET VOLUME 9.3 FL (7.4-10.4); MONOCYTES # (AUTO) 0.9 X10'3 (0-0.9); MONOCYTES % (AUTO) 9.2 % (2-12); NEUTROPHILS # (AUTO) 5.7 X10'3 (1.8-7.7); NEUTROPHILS % (AUTO) 57.8 % (42-75); PLATELET COUNT 160 X10'3 (140-440); RED BLOOD COUNT 5.03 X10'6 (4.70-6.10); RED CELL DISTRIBUTION WIDTH 14.9 % (11.5-14.5); WHITE BLOOD COUNT 9.8 X10'3 (4.5-11.0)
[2023-12-10 08:18] LABS: ALANINE AMINOTRANSFERASE 61 U/L (12-78); ALBUMIN 3.3 G/DL (3.4-5.0); ALBUMIN/GLOBULIN RATIO 0.8 (1.1-1.5); ALKALINE PHOSPHATASE 98 IU/L (46-116); ANION GAP 7 (8-16); ASPARTATE AMINO TRANSFERASE 27 U/L (10-37); BILIRUBIN,TOTAL 1.1 MG/DL (0.1-1.0); BLOOD UREA NITROGEN 32 MG/DL (7-18); BUN/CREATININE RATIO 23.7 (10.0-20.0); CALCIUM 8.7 MG/DL (8.5-10.1); CHLORIDE 103 MMOL/L (99-107); CREATININE 1.35 MG/DL (0.60-1.10); GLUCOSE 91 MG/DL (70-104); MAGNESIUM 2.2 MG/DL (1.5-2.4); POTASSIUM 3.8 MMOL/L (3.5-5.1); SODIUM 136 MMOL/L (135-145); TOTAL CARBON DIOXIDE 26.4 MMOL/L (24-32); TOTAL PROTEIN 7.2 G/DL (6.4-8.2); eCRCL 72 ML/MIN; eGFR 63 ML/MIN
== END 2023-12-10 21:00 | disposition left against medical advice (07) | DRG 194 ==
LOC: ER 06:31 → ED HOLD 12:23 → OBSVTOIN 12:23 → PCU 3S 17:27
PROVIDERS: ADMIT Family Medicine; ATTEND Family Medicine
DX: I50.23 Acute on chronic systolic (congestive) heart failure (principal); I21.A1 Myocardial infarction type 2; I27.20 Pulmonary hypertension, unspecified; I42.0 Dilated cardiomyopathy; F17.210 Nicotine dependence, cigarettes, uncomplicated; K21.9 Gastro-esophageal reflux disease without esophagitis; Z53.21 Procedure and treatment not carried out due to patient leaving prior to being seen by health care provider; I07.1 Rheumatic tricuspid insufficiency; F15.10 Other stimulant abuse, uncomplicated; Z88.8 Allergy status to other drugs, medicaments and biological substances
CPT/HCPCS: 36415; 71045; 80048; 80053; 83735; 83880; 84484; 85025; 87081; 93005; 93306; 94640; 94760; 99285; A4615; G0378; J1630; J1650; J1940

== ENCOUNTER 2023-12-11 14:30 | Inpatient (IN) | payer MEDICAID ==
[~2023-12-11] VITALS: Ht 172.7 cm; Wt 60.0 kg
[~2023-12-11 14:30] MED LIST changes: +CARV3.12 PO; -CARV3.122 PO; +NICO-631 TOP
[2023-12-11 15:20] LABS: EOSINOPHILS # (AUTO) 0.1 X10'3 (0-0.9); MONOCYTES # (AUTO) 1.2 X10'3 (0-0.9); MONOCYTES % (AUTO) 7.9 % (2-12); RED CELL DISTRIBUTION WIDTH 15.1 % (11.5-14.5); WHITE BLOOD COUNT 15.4 X10'3 (4.5-11.0)
[2023-12-11 15:22] LABS: BASOPHILS # (AUTO) 0.1 X10'3 (0-0.2); BASOPHILS % (AUTO) 0.5 % (0-1); EOSINOPHILS % (AUTO) 0.7 % (0-6); HEMATOCRIT 57.5 % (42.0-52.0); LYMPHOCYTES # (AUTO) 2.7 X10'3 (1.1-4.8); LYMPHOCYTES % (AUTO) 17.6 % (21-51); MEAN CORPUSCULAR HEMOGLOBIN 34.5 PG (27.0-31.0); MEAN CORPUSCULAR HGB CONC 33.8 g/dL (33.0-36.5); MEAN PLATELET VOLUME 9.4 FL (7.4-10.4); NEUTROPHILS # (AUTO) 11.3 X10'3 (1.8-7.7); NEUTROPHILS % (AUTO) 73.3 % (42-75); PLATELET COUNT 191 X10'3 (140-440); RED BLOOD COUNT 5.64 X10'6 (4.70-6.10)
[2023-12-11 15:37] LABS: ANION GAP 9 (8-16); BLOOD UREA NITROGEN 35 MG/DL (7-18); BUN/CREATININE RATIO 18.2 (10.0-20.0); CALCIUM 9.6 MG/DL (8.5-10.1); CHLORIDE 98 MMOL/L (99-107); CREATININE 1.92 MG/DL (0.60-1.10); GLUCOSE 113 MG/DL (70-104); POTASSIUM 4.2 MMOL/L (3.5-5.1); PRO BRAIN NATRIURETIC PEPTIDE 3433 PG/ML (0-125); SODIUM 136 MMOL/L (135-145); TOTAL CARBON DIOXIDE 29.5 MMOL/L (24-32); eCRCL 49 ML/MIN; eGFR 42 ML/MIN
[2023-12-11 15:51] LABS: HEMOGLOBIN 19.4 g/dl (14.0-17.9)
[2023-12-11] MEDS: normal saline 500ml IV soln 1,000 ML IV ONE (16:03)
[2023-12-11] MEDS ORDERED: ondansetron/PF 4mg/2ml inj IV PRN (17:25)
[2023-12-11] MEDS: nicotine 14mg patch - 24hr TD ONE (17:25)
[2023-12-11] MEDS ORDERED: magnesium sulf-water 2g/50mL 50 ML IV PRN (17:25)
[2023-12-11] MEDS ORDERED: magnesium hydroxide 30ml (MOM) UD suspension PO PRN (17:25)
[2023-12-11] MEDS ORDERED: acetaminophen 325mg tablet PO PRN (17:25)
[2023-12-11] MEDS ORDERED: mag hydrox/Alum hydrox/simeth 30ml oral suspension PO PRN (17:25)
[2023-12-11] MEDS ORDERED: magnesium sulf-water 4G/100mL 100 ML IV PRN (17:25)
[2023-12-11] MEDS ORDERED: magnesium Cl slow-release 64mg tablet PO PRN (17:25)
[2023-12-11] MEDS ORDERED: potassium Cl 20 mEq SR tablet PO PRN ×2 (17:25)
[2023-12-11] MEDS ORDERED: potassium Cl 40MEQ/1/2NS 520ml 520 ML IV PRN (17:25)
[2023-12-11] MEDS: K and/or MAG REPLACEMENT MC SCH (20:00)
[2023-12-11] MEDS: docusate sod 100mg capsule PO SCH (20:19)
[2023-12-11] MEDS: carVEDilol 3.125mg tablet PO SCH (20:19)
[2023-12-11 21:59] LABS: URINE AMPHETAMINE SCREEN POSITIVE (Neg); URINE BARBITUATE SCREEN NEGATIVE (Neg); URINE BENZODIAZEPINES SCREEN NEGATIVE (Neg); URINE CANNABINOID SCREEN POSITIVE (Neg); URINE COCAINE SCREEN NEGATIVE (Neg); URINE METHADONE SCREEN NEGATIVE (Neg); URINE OPIATE SCREEN NEGATIVE (Neg); URINE PHENCYCLIDINE SCREEN NEGATIVE (Neg)
[2023-12-12] VITALS (7 sets, daily range): BP systolic 104–117; BP diastolic 74–87; PULSE 73–80; RESP 12–18; TEMP 96–98; O2SAT 97–100
[2023-12-12] MEDS: LORazepam 1 MG tablet PO ONE (02:39)
[2023-12-12 06:18] LABS: BASOPHILS # (AUTO) 0.1 X10'3 (0-0.2); BASOPHILS % (AUTO) 0.5 % (0-1); EOSINOPHILS # (AUTO) 0.1 X10'3 (0-0.9); EOSINOPHILS % (AUTO) 1.1 % (0-6); MEAN CORPUSCULAR HGB CONC 33.8 g/dL (33.0-36.5); MONOCYTES # (AUTO) 1.1 X10'3 (0-0.9)
[2023-12-12 06:21] LABS: HEMATOCRIT 52.8 % (42.0-52.0); HEMOGLOBIN 17.8 g/dl (14.0-17.9); LYMPHOCYTES # (AUTO) 2.5 X10'3 (1.1-4.8); LYMPHOCYTES % (AUTO) 22.2 % (21-51); MEAN CORPUSCULAR HEMOGLOBIN 34.6 PG (27.0-31.0); MEAN CORPUSCULAR VOLUME 102.3 FL (78-98); MEAN PLATELET VOLUME 9.8 FL (7.4-10.4); MONOCYTES % (AUTO) 9.2 % (2-12); NEUTROPHILS # (AUTO) 7.7 X10'3 (1.8-7.7); PLATELET COUNT 157 X10'3 (140-440); RED BLOOD COUNT 5.16 X10'6 (4.70-6.10); RED CELL DISTRIBUTION WIDTH 15.4 % (11.5-14.5); WHITE BLOOD COUNT 11.5 X10'3 (4.5-11.0)
[2023-12-12 06:28] LABS: ALBUMIN 3.3 G/DL (3.4-5.0); ANION GAP 6 (8-16); BLOOD UREA NITROGEN 26 MG/DL (7-18); BUN/CREATININE RATIO 21.7 (10.0-20.0); CALCIUM 8.7 MG/DL (8.5-10.1); CHLORIDE 101 MMOL/L (99-107); GLUCOSE 83 MG/DL (70-104); MAGNESIUM 2.2 MG/DL (1.5-2.4); POTASSIUM 3.8 MMOL/L (3.5-5.1); SODIUM 136 MMOL/L (135-145); eCRCL 78 ML/MIN; eGFR 72 ML/MIN
[2023-12-12] MEDS: spironolactone 25 MG tablet PO SCH (08:48)
[2023-12-12] MEDS: EMPAGLIFLOZIN 10 MG TABLET PO SCH (08:48)
[2023-12-12] MEDS: furosemide 20MG tablet PO SCH (08:49)
[2023-12-12] MEDS: lisinopril 5mg tablet PO SCH (08:49)
[2023-12-12] MEDS: enoxaparin 30mg/0.3ml syringe SUBCUT SCH (08:50)
[2023-12-12] MEDS: ALPRAZolam 0.25mg tablet PO STA (14:42)
[2023-12-12] MEDS: Melatonin 3mg tablet PO SCH ×2 (20:48→22:49)
[2023-12-12] MEDS: ALPRAZolam 0.25mg tablet PO PRN (22:49)
[2023-12-13] VITALS (7 sets, daily range): BP systolic 92–107; BP diastolic 57–78; PULSE 58–78; RESP 14–16; TEMP 96.5–98.6; O2SAT 98–100
[2023-12-13] MEDS: LORazepam 0.5 MG tablet PO ONE (03:07)
[2023-12-13] MEDS: haloperidol lactate 5mg/ml inj IM ONE ×2 (04:19→22:07)
[2023-12-13 07:10] LABS: ALBUMIN 3.4 G/DL (3.4-5.0); ANION GAP 9 (8-16); BLOOD UREA NITROGEN 28 MG/DL (7-18); CHLORIDE 102 MMOL/L (99-107); CREATININE 1.12 MG/DL (0.60-1.10); GLUCOSE 87 MG/DL (70-104); MAGNESIUM 2.3 MG/DL (1.5-2.4); POTASSIUM 4.7 MMOL/L (3.5-5.1); SODIUM 137 MMOL/L (135-145); TOTAL CARBON DIOXIDE 25.6 MMOL/L (24-32); eCRCL 83 ML/MIN; eGFR 78 ML/MIN
[2023-12-13 07:50] LABS: FERRITIN 323 NG/ML (26-388)
[2023-12-13] MEDS: nicotine 14mg patch - 24hr TD SCH (08:00)
[2023-12-13 11:29] LABS: HEMATOCRIT 51.9 % (43.5-53.7); HEMOGLOBIN 17.4 G/DL (12.5-16.3); RED BLOOD COUNT 5.13 X10'6 (4.30-5.90); WHITE BLOOD COUNT 9.7 X10'3 (4.5-11.0)
[2023-12-13 11:30] LABS: BASOPHILS # (AUTO) 0.1 X10'3 (0-1); BASOPHILS % 1 % (0-2); EOSINOPHILS # (AUTO) 0.2 X10'3 (0-0.9); EOSINOPHILS % (AUTO) 2 % (0-5); LYMPHOCYTES % 31 % (24-44); MEAN CORPUSCULAR HEMOGLOBIN 33.9 PG (27-31.2); MEAN CORPUSCULAR HGB CONC 33.5 % (32-36); MEAN CORPUSCULAR VOLUME 101.1 FL (81-97); MONOCYTES # (AUTO) 1.3 X10'3 (0-0.9); MONOCYTES % 13 % (0-12); PLATELET COUNT 147 X10'3 (130-400); RED CELL DISTRIBUTION WIDTH 15.1 % (11-16); SEGMENTED NEUTROPHILS % 52 % (36-66)
[2023-12-14 04:51] LABS: BASOPHILS # (AUTO) 0.1 X10'3 (0-0.2); BASOPHILS % (AUTO) 0.8 % (0-1); EOSINOPHILS # (AUTO) 0.2 X10'3 (0-0.9); MONOCYTES # (AUTO) 1.2 X10'3 (0-0.9); NEUTROPHILS # (AUTO) 5.2 X10'3 (1.8-7.7); RED CELL DISTRIBUTION WIDTH 15.1 % (11.5-14.5)
[2023-12-14 04:52] LABS: EOSINOPHILS % (AUTO) 2.1 % (0-6); LYMPHOCYTES # (AUTO) 3.5 X10'3 (1.1-4.8); MEAN CORPUSCULAR HEMOGLOBIN 33.8 PG (27.0-31.0); MEAN CORPUSCULAR HGB CONC 33.2 g/dL (33.0-36.5); MEAN CORPUSCULAR VOLUME 101.9 FL (78-98); MEAN PLATELET VOLUME 9.4 FL (7.4-10.4); MONOCYTES % (AUTO) 11.7 % (2-12); NEUTROPHILS % (AUTO) 51.4 % (42-75); PLATELET COUNT 148 X10'3 (140-440); RED BLOOD COUNT 5.43 X10'6 (4.70-6.10); WHITE BLOOD COUNT 10.2 X10'3 (4.5-11.0)
[2023-12-14 04:55] LABS: HEMATOCRIT 55.4 % (42.0-52.0); HEMOGLOBIN 18.4 g/dl (14.0-17.9)
[2023-12-14 05:00] LABS: ALBUMIN 3.6 G/DL (3.4-5.0); ANION GAP 6 (8-16); BLOOD UREA NITROGEN 29 MG/DL (7-18); BUN/CREATININE RATIO 23.8 (10.0-20.0); CALCIUM 9.5 MG/DL (8.5-10.1); CHLORIDE 102 MMOL/L (99-107); CREATININE 1.22 MG/DL (0.60-1.10); GLUCOSE 83 MG/DL (70-104); MAGNESIUM 2.2 MG/DL (1.5-2.4); POTASSIUM 4.8 MMOL/L (3.5-5.1); SODIUM 134 MMOL/L (135-145); TOTAL CARBON DIOXIDE 25.8 MMOL/L (24-32); eCRCL 77 ML/MIN; eGFR 71 ML/MIN
[2023-12-14 06:00] VITALS: BP 110/73; PULSE 72; RESP 16; TEMP 97.2; O2SAT 98
[2023-12-14 08:00] VITALS: RESP 16; O2SAT 98
[2023-12-14] MEDS: normal saline 500ml IV soln 500 ML IV ONE (09:20)
[2023-12-14 11:00] VITALS: BP 103/70; PULSE 79; RESP 13; TEMP 98.2; O2SAT 100
[2023-12-14] MEDS ORDERED: FURO20TA4 PO (12:47)
[2023-12-14] MEDS ORDERED: LOSA50TA64 PO (12:47)
[2023-12-14] MEDS ORDERED: SPIR25TA PO (12:47)
[2023-12-14] MEDS ORDERED: EMPA10TA PO (12:47)
[2023-12-14] MEDS ORDERED: CARV3.12 PO (12:47)
[2023-12-15 08:15] VITALS: BP 116/87; PULSE 86; RESP 18; TEMP 98.8; O2SAT 99
== END 2023-12-14 14:15 | disposition home or self-care (01) | DRG 194 ==
LOC: ER 14:31 → ED HOLD 17:33 → PCU 3S 22:34
PROVIDERS: ADMIT Family Medicine; ATTEND Family Medicine
DX: I50.23 Acute on chronic systolic (congestive) heart failure (principal); N17.0 Acute kidney failure with tubular necrosis; E86.0 Dehydration; I27.20 Pulmonary hypertension, unspecified; I42.7 Cardiomyopathy due to drug and external agent; G25.81 Restless legs syndrome; F17.210 Nicotine dependence, cigarettes, uncomplicated; I07.1 Rheumatic tricuspid insufficiency; F15.10 Other stimulant abuse, uncomplicated; T43.625A Adverse effect of amphetamines, initial encounter; Y92.89 Other specified places as the place of occurrence of the external cause; Z79.899 Other long term (current) drug therapy
CPT/HCPCS: 36415; 71045; 80048; 80305; 82728; 83735; 83880; 84484; 85025; 87081; 93005; 96360; 99285; G0378; J1630; J1650; J7030; J7040

== ENCOUNTER 2023-12-17 22:03 | Inpatient (IN) | payer MEDICAID ==
[~2023-12-17] VITALS: Ht 170.2 cm; Wt 61.1 kg
[~2023-12-17 22:03] MED LIST changes: +EMPA10TA PO; +FURO20TA4 PO; -LISI2.5T14 PO; +LOSA50TA64 PO; +SPIR25TA PO
[2023-12-17 22:40] LABS: BASOPHILS # (AUTO) 0.1 X10'3 (0-0.2); BASOPHILS % (AUTO) 0.8 % (0-1); EOSINOPHILS # (AUTO) 0.2 X10'3 (0-0.9); EOSINOPHILS % (AUTO) 1.2 % (0-6); HEMATOCRIT 52.2 % (42.0-52.0); HEMOGLOBIN 16.9 g/dl (14.0-17.9); LYMPHOCYTES # (AUTO) 4.5 X10'3 (1.1-4.8); LYMPHOCYTES % (AUTO) 30.6 % (21-51); MEAN CORPUSCULAR HEMOGLOBIN 33.6 PG (27.0-31.0); MEAN CORPUSCULAR HGB CONC 32.3 g/dL (33.0-36.5); MEAN PLATELET VOLUME 9.8 FL (7.4-10.4); MONOCYTES # (AUTO) 1.7 X10'3 (0-0.9); MONOCYTES % (AUTO) 11.4 % (2-12); NEUTROPHILS # (AUTO) 8.2 X10'3 (1.8-7.7); PLATELET COUNT 149 X10'3 (140-440); RED BLOOD COUNT 5.02 X10'6 (4.70-6.10); RED CELL DISTRIBUTION WIDTH 15.2 % (11.5-14.5); WHITE BLOOD COUNT 14.6 X10'3 (4.5-11.0)
[2023-12-17 23:01] LABS: ALKALINE PHOSPHATASE 113 IU/L (46-116); BILIRUBIN,TOTAL 0.5 MG/DL (0.1-1.0); POTASSIUM 4.3 MMOL/L (3.5-5.1); SODIUM 140 MMOL/L (135-145)
[2023-12-17 23:29] LABS: ALANINE AMINOTRANSFERASE 110 U/L (12-78); ALBUMIN 3.7 G/DL (3.4-5.0); ALBUMIN/GLOBULIN RATIO 0.9 (1.1-1.5); ANION GAP 16 (8-16); ASPARTATE AMINO TRANSFERASE 66 U/L (10-37); BLOOD UREA NITROGEN 27 MG/DL (7-18); BUN/CREATININE RATIO 18.5 (10.0-20.0); CHLORIDE 106 MMOL/L (99-107); CREATININE 1.46 MG/DL (0.60-1.10); GLUCOSE 75 MG/DL (70-104); TOTAL CARBON DIOXIDE 18.3 MMOL/L (24-32); TOTAL PROTEIN 7.9 G/DL (6.4-8.2); eCRCL 65 ML/MIN; eGFR 57 ML/MIN
[2023-12-17 23:37] LABS: PRO BRAIN NATRIURETIC PEPTIDE 9768 PG/ML (0-125)
[2023-12-18] VITALS (7 sets, daily range): BP systolic 122–147; BP diastolic 73–94; PULSE 69–81; RESP 11–20; TEMP 97.4–98; O2SAT 99–100
[2023-12-18] MEDS ORDERED: heparin 10,000 units/1 ML INJ IV ONE (01:55)
[2023-12-18] MEDS: aspirin 81mg tab.chew PO ONE (02:09)
[2023-12-18] MEDS: nitroGLYCERIN 0.4mg SUBLingual tab SL PRN (02:11)
[2023-12-18] MEDS: MESSAGE TO NURSING IV ONE ×4 (02:35→22:20)
[2023-12-18 03:00] LABS: APTT 25 SECONDS (22-32); INR 1.1 INR
[2023-12-18] MEDS ORDERED: mag hydrox/Alum hydrox/simeth 30ml oral suspension PO PRN (03:25)
[2023-12-18] MEDS ORDERED: ondansetron/PF 4mg/2ml inj IV PRN (03:25)
[2023-12-18] MEDS ORDERED: potassium Cl 20 mEq SR tablet PO PRN ×2 (03:25)
[2023-12-18] MEDS ORDERED: magnesium Cl slow-release 64mg tablet PO PRN (03:25)
[2023-12-18] MEDS ORDERED: morphine 2 MG/ML inj. syringe IV PRN (03:25)
[2023-12-18] MEDS ORDERED: magnesium hydroxide 30ml (MOM) UD suspension PO PRN (03:25)
[2023-12-18] MEDS ORDERED: magnesium sulf-water 2g/50mL 50 ML IV PRN (03:25)
[2023-12-18] MEDS ORDERED: potassium Cl 40MEQ/1/2NS 520ml 520 ML IV PRN (03:25)
[2023-12-18] MEDS ORDERED: magnesium sulf-water 4G/100mL 100 ML IV PRN (03:25)
[2023-12-18] MEDS: heparin 10,000 units/1 ML INJ IV ONE (03:43)
[2023-12-18] MEDS: heparin 25,000 UNIT/250ml bag 250 ML IV PRN (03:46)
[2023-12-18] MEDS: furosemide 10 MG/1 ML 10ml inj IV ONE (06:02)
[2023-12-18] MEDS: K and/or MAG REPLACEMENT MC SCH (08:00)
[2023-12-18] MEDS: losartan 25mg tablet PO SCH (08:48)
[2023-12-18] MEDS: carVEDilol 3.125mg tablet PO SCH (08:48)
[2023-12-18] MEDS: spironolactone 25 MG tablet PO SCH (08:49)
[2023-12-18] MEDS: EMPAGLIFLOZIN 10 MG TABLET PO SCH (08:49)
[2023-12-18] MEDS: heparin 10,000 units/1 ML INJ IV PRN (16:06)
[2023-12-18] MEDS ORDERED: metoprolol tartrate 1mg/ml inj IV PRN (17:45)
[2023-12-18] MEDS ORDERED: nitroGLYCERIN 0.4mg SUBLingual tab SL PRN (17:45)
[2023-12-18] MEDS ORDERED: aminophylline 250mg/10ml inj. IV PRN (17:45)
[2023-12-18] MEDS: ROPINIRole 0.25mg tablet PO SCH (23:12)
[2023-12-18] MEDS: morphine 2 MG/ML inj. syringe IV PRN (23:37)
[2023-12-18] MEDS: acetaminophen 325mg tablet PO PRN (23:38)
[2023-12-19] VITALS (14 sets, daily range): BP systolic 101–135; BP diastolic 68–92; PULSE 59–91; RESP 11–16; TEMP 97.6–98.2; O2SAT 93–100
[2023-12-19 06:44] LABS: BASOPHILS # (AUTO) 0.1 X10'3 (0-0.2); BASOPHILS % (AUTO) 1.1 % (0-1); EOSINOPHILS # (AUTO) 0.3 X10'3 (0-0.9); EOSINOPHILS % (AUTO) 3.2 % (0-6); HEMATOCRIT 51.8 % (42.0-52.0); HEMOGLOBIN 17.3 g/dl (14.0-17.9); LYMPHOCYTES # (AUTO) 4.2 X10'3 (1.1-4.8); LYMPHOCYTES % (AUTO) 46.7 % (21-51); MEAN CORPUSCULAR HEMOGLOBIN 34.3 PG (27.0-31.0); MEAN CORPUSCULAR HGB CONC 33.4 g/dL (33.0-36.5); MEAN CORPUSCULAR VOLUME 102.9 FL (78-98); MEAN PLATELET VOLUME 10.4 FL (7.4-10.4); MONOCYTES # (AUTO) 0.9 X10'3 (0-0.9); NEUTROPHILS # (AUTO) 3.5 X10'3 (1.8-7.7); PLATELET COUNT 190 X10'3 (140-440); RED BLOOD COUNT 5.04 X10'6 (4.70-6.10); RED CELL DISTRIBUTION WIDTH 14.6 % (11.5-14.5); WHITE BLOOD COUNT 8.9 X10'3 (4.5-11.0)
[2023-12-19 06:52] LABS: ALBUMIN 3.2 G/DL (3.4-5.0); ANION GAP 6 (8-16); BLOOD UREA NITROGEN 28 MG/DL (7-18); BUN/CREATININE RATIO 26.9 (10.0-20.0); CALCIUM 8.8 MG/DL (8.5-10.1); CHLORIDE 105 MMOL/L (99-107); CREATININE 1.04 MG/DL (0.60-1.10); GLUCOSE 79 MG/DL (70-104); MAGNESIUM 2.1 MG/DL (1.5-2.4); PHOSPHORUS 3.9 MG/DL (2.3-4.5); POTASSIUM 4.8 MMOL/L (3.5-5.1); SODIUM 136 MMOL/L (135-145); TOTAL CARBON DIOXIDE 24.9 MMOL/L (24-32); eCRCL 91 ML/MIN; eGFR 85 ML/MIN
[2023-12-19] MEDS: MESSAGE TO NURSING IV ONE ×2 (07:17→14:31)
[2023-12-19] MEDS: regadenoson 0.4mg/5ml syringe IV PRN (09:51)
== END 2023-12-19 17:15 | disposition home or self-care (01) | DRG 194 ==
LOC: ER 22:04 → ED HOLD 12-18 03:29 → PCU 3S 12-18 07:27
PROVIDERS: ADMIT Student in an Organized Health Care Education/Training Program; ATTEND Family Medicine
PROC: 4A02XM4 Measurement of Cardiac Total Activity, External Approach (ICD-10-PCS; principal; 2023-12-19)
PROC: 3E033HZ Introduction of Radioactive Substance into Peripheral Vein, Percutaneous Approach (ICD-10-PCS; 2023-12-19)
DX: I50.23 Acute on chronic systolic (congestive) heart failure (principal); I27.20 Pulmonary hypertension, unspecified; N17.9 Acute kidney failure, unspecified; I42.7 Cardiomyopathy due to drug and external agent; I07.1 Rheumatic tricuspid insufficiency; G25.81 Restless legs syndrome; F15.10 Other stimulant abuse, uncomplicated
CPT/HCPCS: 36415; 71045; 78452; 80048; 80053; 83735; 83880; 84100; 84484; 85025; 85610; 85730; 93005; 93017; 99291; A9500; G0378; J1644; J1940; J2270; J2785

== ENCOUNTER 2023-12-23 13:11 | Emergency (ER) | payer MEDICAID ==
[~2023-12-23] VITALS: Ht 170.2 cm; Wt 61.4 kg
[2023-12-23 13:19] VITALS: TEMP 98.7
[2023-12-23 13:36] LABS: BASOPHILS # (AUTO) 0.1 X10'3 (0-0.2); EOSINOPHILS # (AUTO) 0.2 X10'3 (0-0.9); EOSINOPHILS % (AUTO) 1.9 % (0-6); HEMATOCRIT 51.1 % (42.0-52.0); HEMOGLOBIN 17.4 g/dl (14.0-17.9); LYMPHOCYTES # (AUTO) 3.1 X10'3 (1.1-4.8); LYMPHOCYTES % (AUTO) 29.1 % (21-51); MEAN CORPUSCULAR HEMOGLOBIN 34.6 PG (27.0-31.0); MEAN PLATELET VOLUME 9.2 FL (7.4-10.4); MONOCYTES % (AUTO) 9.3 % (2-12); NEUTROPHILS # (AUTO) 6.3 X10'3 (1.8-7.7); NEUTROPHILS % (AUTO) 58.7 % (42-75); PLATELET COUNT 206 X10'3 (140-440); RED BLOOD COUNT 5.01 X10'6 (4.70-6.10); RED CELL DISTRIBUTION WIDTH 15.1 % (11.5-14.5); WHITE BLOOD COUNT 10.8 X10'3 (4.5-11.0)
[2023-12-23 14:37] LABS: ALBUMIN 4.2 G/DL (3.4-5.0); ANION GAP 11 (8-16); BLOOD UREA NITROGEN 22 MG/DL (7-18); BUN/CREATININE RATIO 18.6 (10.0-20.0); CALCIUM 9.9 MG/DL (8.5-10.1); CHLORIDE 104 MMOL/L (99-107); CREATININE 1.18 MG/DL (0.60-1.10); GLUCOSE 73 MG/DL (70-104); POTASSIUM 4.3 MMOL/L (3.5-5.1); PRO BRAIN NATRIURETIC PEPTIDE 2852 PG/ML (0-125); SODIUM 144 MMOL/L (135-145); TOTAL CARBON DIOXIDE 28.6 MMOL/L (24-32); eCRCL 81 ML/MIN; eGFR 74 ML/MIN
[2023-12-23] MEDS: ketorolac trometh 15mg/ml vial 15 MG/ML ML IM ONE (14:40)
[2023-12-23] MEDS: acetaminophen 325mg tablet PO ONE (14:40)
[2023-12-23] MEDS: ondansetron 4mg rapidly disintigrating tab PO ONE (14:55)
[2023-12-23 16:50] VITALS: BP 129/69; PULSE 74; RESP 16; O2SAT 98
== END 2023-12-23 16:52 | disposition home or self-care (01) ==
LOC: ER 13:11
DX: R07.89 Other chest pain (principal); I50.9 Heart failure, unspecified; F12.90 Cannabis use, unspecified, uncomplicated; F15.90 Other stimulant use, unspecified, uncomplicated; Z79.899 Other long term (current) drug therapy
CPT/HCPCS: 36415; 71045; 80048; 83880; 84484; 85025; 93005; 96372; 99285; J1885

== ENCOUNTER 2023-12-24 04:03 | Emergency (ER) | payer MEDICAID ==
[~2023-12-24] VITALS: Ht 170.2 cm; Wt 59.1 kg
[~2023-12-24 04:03] MED LIST changes: -NICO-631 TOP; -SPIR25TA PO
[2023-12-24] MEDS: LORazepam 1 MG tablet PO ONE (05:02)
[2023-12-24 05:28] LABS: ALBUMIN 3.4 G/DL (3.4-5.0); ANION GAP 9 (8-16); BASOPHILS # (AUTO) 0.1 X10'3 (0-0.2); BASOPHILS % (AUTO) 0.7 % (0-1); BLOOD UREA NITROGEN 34 MG/DL (7-18); CALCIUM 8.9 MG/DL (8.5-10.1); CHLORIDE 107 MMOL/L (99-107); CREATININE 1.31 MG/DL (0.60-1.10); EOSINOPHILS # (AUTO) 0.3 X10'3 (0-0.9); EOSINOPHILS % (AUTO) 2.3 % (0-6); GLUCOSE 91 MG/DL (70-104); HEMATOCRIT 44.9 % (42.0-52.0); HEMOGLOBIN 15.3 g/dl (14.0-17.9); LYMPHOCYTES # (AUTO) 3.8 X10'3 (1.1-4.8); MEAN CORPUSCULAR HEMOGLOBIN 34.7 PG (27.0-31.0); MEAN CORPUSCULAR HGB CONC 34.1 g/dL (33.0-36.5); MEAN CORPUSCULAR VOLUME 101.6 FL (78-98); MEAN PLATELET VOLUME 9.6 FL (7.4-10.4); MONOCYTES # (AUTO) 1.2 X10'3 (0-0.9); NEUTROPHILS # (AUTO) 6.8 X10'3 (1.8-7.7); PLATELET COUNT 189 X10'3 (140-440); POTASSIUM 4.3 MMOL/L (3.5-5.1); RED BLOOD COUNT 4.42 X10'6 (4.70-6.10); RED CELL DISTRIBUTION WIDTH 14.6 % (11.5-14.5); SODIUM 139 MMOL/L (135-145); WHITE BLOOD COUNT 12.2 X10'3 (4.5-11.0); eCRCL 70 ML/MIN; eGFR 65 ML/MIN
[2023-12-24 05:32] LABS: URINE AMPHETAMINE SCREEN NEGATIVE (Neg); URINE BARBITUATE SCREEN NEGATIVE (Neg); URINE BENZODIAZEPINES SCREEN NEGATIVE (Neg); URINE CANNABINOID SCREEN POSITIVE (Neg); URINE COCAINE SCREEN NEGATIVE (Neg); URINE METHADONE SCREEN NEGATIVE (Neg); URINE OPIATE SCREEN NEGATIVE (Neg); URINE PHENCYCLIDINE SCREEN NEGATIVE (Neg)
[2023-12-24 05:35] LABS: ETHANOL < 10 MG/DL (<10)
[2023-12-24 05:39] VITALS: BP 113/72; PULSE 79; O2SAT 99
[2023-12-24] MEDS: diazepam 5mg tablet PO ONE (06:03)
[2023-12-24 11:03] VITALS: RESP 14; TEMP 98.2
== END 2023-12-24 11:07 | disposition home or self-care (01) ==
LOC: ER 04:04
DX: R45.851 Suicidal ideations (principal); Z20.822 Contact with and (suspected) exposure to COVID-19; I50.9 Heart failure, unspecified; F12.90 Cannabis use, unspecified, uncomplicated; F15.90 Other stimulant use, unspecified, uncomplicated; Z79.899 Other long term (current) drug therapy
CPT/HCPCS: 36415; 80048; 80305; 80320; 83735; 84484; 85025; 87811; 93005; 99285

== ENCOUNTER 2023-12-28 10:09 | Emergency (ER) | payer MEDICAID ==
[~2023-12-28] VITALS: Ht 170.2 cm; Wt 61.4 kg
[2023-12-28 10:31] VITALS: TEMP 97.3
[2023-12-28 10:53] LABS: BASOPHILS # (AUTO) 0.1 X10'3 (0-0.2); BASOPHILS % (AUTO) 0.9 % (0-1); EOSINOPHILS # (AUTO) 0.2 X10'3 (0-0.9); EOSINOPHILS % (AUTO) 2.1 % (0-6); HEMATOCRIT 41.7 % (42.0-52.0); HEMOGLOBIN 14.1 g/dl (14.0-17.9); LYMPHOCYTES % (AUTO) 33.5 % (21-51); MEAN CORPUSCULAR HEMOGLOBIN 34.2 PG (27.0-31.0); MEAN CORPUSCULAR HGB CONC 33.7 g/dL (33.0-36.5); MEAN CORPUSCULAR VOLUME 101.5 FL (78-98); MONOCYTES # (AUTO) 0.7 X10'3 (0-0.9); MONOCYTES % (AUTO) 7.7 % (2-12); NEUTROPHILS % (AUTO) 55.8 % (42-75); PLATELET COUNT 149 X10'3 (140-440); RED CELL DISTRIBUTION WIDTH 14.7 % (11.5-14.5); WHITE BLOOD COUNT 8.9 X10'3 (4.5-11.0)
[2023-12-28 11:16] LABS: ALANINE AMINOTRANSFERASE 145 U/L (12-78); ALBUMIN 3.2 G/DL (3.4-5.0); ALKALINE PHOSPHATASE 94 IU/L (46-116); ANION GAP 10 (8-16); ASPARTATE AMINO TRANSFERASE 140 U/L (10-37); BILIRUBIN,TOTAL 0.5 MG/DL (0.1-1.0); BLOOD UREA NITROGEN 25 MG/DL (7-18); BUN/CREATININE RATIO 17.9 (10.0-20.0); CALCIUM 8.9 MG/DL (8.5-10.1); CHLORIDE 110 MMOL/L (99-107); GLUCOSE 106 MG/DL (70-104); POTASSIUM 4.1 MMOL/L (3.5-5.1); PRO BRAIN NATRIURETIC PEPTIDE 7392 PG/ML (0-125); SODIUM 142 MMOL/L (135-145); TOTAL CARBON DIOXIDE 21.9 MMOL/L (24-32); eCRCL 68 ML/MIN; eGFR 60 ML/MIN
[2023-12-28 11:32] LABS: ALBUMIN/GLOBULIN RATIO 0.9 (1.1-1.5); TOTAL PROTEIN 6.8 G/DL (6.4-8.2)
[2023-12-28 11:48] VITALS: BP 127/79; PULSE 85; RESP 15; O2SAT 99
== END 2023-12-28 13:29 | disposition left against medical advice (07) ==
LOC: ER 10:10
DX: R07.9 Chest pain, unspecified (principal); R06.02 Shortness of breath; F15.10 Other stimulant abuse, uncomplicated; I50.9 Heart failure, unspecified; F12.90 Cannabis use, unspecified, uncomplicated; Z79.899 Other long term (current) drug therapy
CPT/HCPCS: 36415; 71045; 80053; 83880; 84484; 85025; 93005; 99285

== ENCOUNTER 2024-01-06 11:15 | Emergency (ER) | payer MEDICAID | END 2024-01-06 13:32 | disposition left against medical advice (07) | LOC: ER 11:16 | DX: R69 Illness, unspecified (principal); Z53.21 Procedure and treatment not carried out due to patient leaving prior to being seen by health care provider ==

== ENCOUNTER 2024-01-10 21:35 | Emergency (ER) | payer MEDICAID ==
[~2024-01-10] VITALS: Ht 170.2 cm; Wt 57.9 kg
[2024-01-10 21:45] VITALS: BP 132/82; PULSE 102; RESP 20; TEMP 98; O2SAT 98
[2024-01-10 21:59] LABS: BASOPHILS # (AUTO) 0.1 X10'3 (0-0.2); BASOPHILS % (AUTO) 0.9 % (0-1); EOSINOPHILS # (AUTO) 0.1 X10'3 (0-0.9); EOSINOPHILS % (AUTO) 0.5 % (0-6); HEMATOCRIT 46.1 % (42.0-52.0); HEMOGLOBIN 15.2 g/dl (14.0-17.9); LYMPHOCYTES # (AUTO) 3.1 X10'3 (1.1-4.8); LYMPHOCYTES % (AUTO) 27.9 % (21-51); MEAN CORPUSCULAR VOLUME 103.2 FL (78-98); MEAN PLATELET VOLUME 9.6 FL (7.4-10.4); MONOCYTES % (AUTO) 9.1 % (2-12); NEUTROPHILS # (AUTO) 6.8 X10'3 (1.8-7.7); NEUTROPHILS % (AUTO) 61.6 % (42-75); PLATELET COUNT 169 X10'3 (140-440); RED BLOOD COUNT 4.46 X10'6 (4.70-6.10); RED CELL DISTRIBUTION WIDTH 15.5 % (11.5-14.5); WHITE BLOOD COUNT 11.1 X10'3 (4.5-11.0)
[2024-01-10 22:08] LABS: ALANINE AMINOTRANSFERASE 63 U/L (12-78); ALBUMIN/GLOBULIN RATIO 1.1 (1.1-1.5); ALKALINE PHOSPHATASE 78 IU/L (46-116); ANION GAP 17 (8-16); ASPARTATE AMINO TRANSFERASE 43 U/L (10-37); BILIRUBIN,TOTAL 0.9 MG/DL (0.1-1.0); BLOOD UREA NITROGEN 36 MG/DL (7-18); CALCIUM 9.3 MG/DL (8.5-10.1); CHLORIDE 107 MMOL/L (99-107); CREATININE 1.16 MG/DL (0.60-1.10); GLUCOSE 85 MG/DL (70-104); SODIUM 142 MMOL/L (135-145); TOTAL CARBON DIOXIDE 17.6 MMOL/L (24-32); TOTAL PROTEIN 7.7 G/DL (6.4-8.2); eCRCL 78 ML/MIN; eGFR 75 ML/MIN
[2024-01-10 22:18] LABS: PRO BRAIN NATRIURETIC PEPTIDE 2432 PG/ML (0-125)
[2024-01-10] MEDS ORDERED: heparin 10,000 units/1 ML INJ IV PRN (22:25)
[2024-01-10] MEDS ORDERED: normal saline 1000ML IV soln IVB ONE (22:25)
[2024-01-10] MEDS ORDERED: heparin 25,000 UNIT/250ml bag 250 ML IV PRN (22:25)
[2024-01-10] MEDS ORDERED: aspirin 325mg tablet PO ONE (22:25)
[2024-01-10] MEDS ORDERED: heparin 10,000 units/1 ML INJ IV ONE (22:25)
[2024-01-10 22:39] LABS: APTT 26 SECONDS (22-32); D-DIMER 0.33 MG/L FEU (0-0.50); INR 1.1 INR; PROTHROMBIN TIME 11.7 SECONDS (9.0-12.0)
== END 2024-01-10 23:39 | disposition left against medical advice (07) ==
LOC: ER 21:36
DX: R06.02 Shortness of breath (principal); R07.89 Other chest pain; Z53.21 Procedure and treatment not carried out due to patient leaving prior to being seen by health care provider
CPT/HCPCS: 36415; 71045; 80053; 83880; 84484; 85025; 85379; 85610; 85730; 93005

== ENCOUNTER 2024-01-27 19:29 | Emergency (ER) | payer MEDICAID ==
[~2024-01-27] VITALS: Ht 170.2 cm; Wt 75.0 kg
[2024-01-27 19:50] LABS: BASOPHILS # (AUTO) 0.1 X10'3 (0-0.2); EOSINOPHILS # (AUTO) 0.2 X10'3 (0-0.9); EOSINOPHILS % (AUTO) 1.6 % (0-6); HEMOGLOBIN 16.3 g/dl (14.0-17.9)
[2024-01-27 19:52] LABS: BASOPHILS % (AUTO) 0.7 % (0-1); HEMATOCRIT 48.2 % (42.0-52.0); LYMPHOCYTES # (AUTO) 3.6 X10'3 (1.1-4.8); LYMPHOCYTES % (AUTO) 35.4 % (21-51); MEAN CORPUSCULAR HEMOGLOBIN 35.3 PG (27.0-31.0); MEAN CORPUSCULAR HGB CONC 33.7 g/dL (33.0-36.5); MEAN CORPUSCULAR VOLUME 104.6 FL (78-98); MEAN PLATELET VOLUME 9.3 FL (7.4-10.4); MONOCYTES % (AUTO) 9.6 % (2-12); NEUTROPHILS # (AUTO) 5.4 X10'3 (1.8-7.7); NEUTROPHILS % (AUTO) 52.7 % (42-75); PLATELET COUNT 124 X10'3 (140-440); RED BLOOD COUNT 4.61 X10'6 (4.70-6.10); RED CELL DISTRIBUTION WIDTH 15.4 % (11.5-14.5); WHITE BLOOD COUNT 10.3 X10'3 (4.5-11.0)
[2024-01-27 20:10] LABS: ALBUMIN 3.4 G/DL (3.4-5.0); ANION GAP 9 (8-16); BLOOD UREA NITROGEN 17 MG/DL (7-18); BUN/CREATININE RATIO 13.6 (10.0-20.0); CALCIUM 8.7 MG/DL (8.5-10.1); CHLORIDE 107 MMOL/L (99-107); CREATININE 1.25 MG/DL (0.60-1.10); GLUCOSE 52 MG/DL (70-104); PRO BRAIN NATRIURETIC PEPTIDE 4696 PG/ML (0-125); SODIUM 141 MMOL/L (135-145); TOTAL CARBON DIOXIDE 24.6 MMOL/L (24-32); eCRCL 82 ML/MIN; eGFR 68 ML/MIN
[2024-01-27 21:30] VITALS: BP 140/104; PULSE 94; TEMP 98.2; O2SAT 95
[2024-01-28 00:45] VITALS: RESP 19
== END 2024-01-28 01:37 | disposition home or self-care (01) ==
LOC: ER 19:30
DX: I42.9 Cardiomyopathy, unspecified (principal); R06.02 Shortness of breath; I50.9 Heart failure, unspecified; F12.90 Cannabis use, unspecified, uncomplicated; F15.90 Other stimulant use, unspecified, uncomplicated; Z79.899 Other long term (current) drug therapy
CPT/HCPCS: 36415; 71045; 80048; 83880; 84484; 85025; 93005; 99285

== ENCOUNTER 2024-02-04 14:15 | Emergency (ER) | payer MEDICAID ==
[~2024-02-04] VITALS: Ht 170.2 cm; Wt 60.0 kg
[2024-02-04 14:18] VITALS: BP 112/89; PULSE 86; RESP 18; TEMP 98.2; O2SAT 100
[2024-02-04 14:40] LABS: BASOPHILS # (AUTO) 0.1 X10'3 (0-0.2); BASOPHILS % (AUTO) 1.1 % (0-1); EOSINOPHILS # (AUTO) 0.2 X10'3 (0-0.9); HEMATOCRIT 45.2 % (42.0-52.0); HEMOGLOBIN 14.9 g/dl (14.0-17.9); LYMPHOCYTES # (AUTO) 2.7 X10'3 (1.1-4.8); MEAN CORPUSCULAR HGB CONC 33.1 g/dL (33.0-36.5); MEAN CORPUSCULAR VOLUME 105.7 FL (78-98); MEAN PLATELET VOLUME 8.8 FL (7.4-10.4); MONOCYTES # (AUTO) 0.8 X10'3 (0-0.9); MONOCYTES % (AUTO) 10.6 % (2-12); NEUTROPHILS % (AUTO) 51.3 % (42-75); PLATELET COUNT 139 X10'3 (140-440); RED BLOOD COUNT 4.27 X10'6 (4.70-6.10); RED CELL DISTRIBUTION WIDTH 15.8 % (11.5-14.5); WHITE BLOOD COUNT 7.7 X10'3 (4.5-11.0)
[2024-02-04 14:47] LABS: ALANINE AMINOTRANSFERASE 148 U/L (12-78); ALBUMIN/GLOBULIN RATIO 0.9 (1.1-1.5); ALKALINE PHOSPHATASE 113 IU/L (46-116); ANION GAP 7 (8-16); ASPARTATE AMINO TRANSFERASE 60 U/L (10-37); BILIRUBIN,TOTAL 0.7 MG/DL (0.1-1.0); BLOOD UREA NITROGEN 14 MG/DL (7-18); BUN/CREATININE RATIO 11.5 (10.0-20.0); CALCIUM 8.3 MG/DL (8.5-10.1); CHLORIDE 107 MMOL/L (99-107); CREATININE 1.22 MG/DL (0.60-1.10); GLUCOSE 87 MG/DL (70-104); SODIUM 139 MMOL/L (135-145); TOTAL CARBON DIOXIDE 25.4 MMOL/L (24-32); TOTAL PROTEIN 6.3 G/DL (6.4-8.2); eCRCL 76 ML/MIN; eGFR 70 ML/MIN
[2024-02-04 14:55] LABS: APTT 25 SECONDS (22-32); INR 1.2 INR; PROTHROMBIN TIME 12.3 SECONDS (9.0-12.0)
[2024-02-04 14:56] LABS: PRO BRAIN NATRIURETIC PEPTIDE 3746 PG/ML (0-125)
[2024-02-04 15:03] LABS: FREE T4 (FREE THYROXINE) 0.82 NG/DL (0.73-1.40); THYROID STIMULATING HORMONE 3.31 ulU/ml (0.34-4.50)
== END 2024-02-04 17:42 | disposition left against medical advice (07) ==
LOC: ER 14:16
DX: R07.89 Other chest pain (principal); Z53.21 Procedure and treatment not carried out due to patient leaving prior to being seen by health care provider
CPT/HCPCS: 36415; 71045; 80053; 83880; 84439; 84443; 84484; 85025; 85610; 85730; 93005

== ENCOUNTER 2024-04-08 14:11 | Inpatient (IN) | payer MEDICAID ==
[~2024-04-08] VITALS: Ht 170.2 cm; Wt 65.5 kg
[2024-04-08] MEDS ORDERED: iohexol 350MG/ML 100ml bottle IV ONE (14:55)
[2024-04-08] MEDS: acetaminophen 325mg tablet PO ONE (14:55)
[2024-04-08 14:56] LABS: BASOPHILS # (AUTO) 0.1 X10'3 (0-0.2); BASOPHILS % (AUTO) 0.9 % (0-1); EOSINOPHILS # (AUTO) 0.1 X10'3 (0-0.9); EOSINOPHILS % (AUTO) 0.6 % (0-6); HEMATOCRIT 52.5 % (42.0-52.0); HEMOGLOBIN 17.9 g/dl (14.0-17.9); LYMPHOCYTES # (AUTO) 2.4 X10'3 (1.1-4.8); LYMPHOCYTES % (AUTO) 22.2 % (21-51); MEAN CORPUSCULAR HEMOGLOBIN 33.9 PG (27.0-31.0); MEAN CORPUSCULAR HGB CONC 34.1 g/dL (33.0-36.5); MEAN CORPUSCULAR VOLUME 99.5 FL (78-98); MEAN PLATELET VOLUME 8.8 FL (7.4-10.4); MONOCYTES # (AUTO) 1.1 X10'3 (0-0.9); NEUTROPHILS % (AUTO) 66.3 % (42-75); PLATELET COUNT 149 X10'3 (140-440); RED BLOOD COUNT 5.28 X10'6 (4.70-6.10); RED CELL DISTRIBUTION WIDTH 15.2 % (11.5-14.5); WHITE BLOOD COUNT 10.6 X10'3 (4.5-11.0)
[2024-04-08] MEDS: ondansetron/PF 4mg/2ml inj IV ONE (14:59)
[2024-04-08] MEDS: meclizine 12.5mg tablet PO ONE (15:20)
[2024-04-08 15:57] LABS: APTT 27 SECONDS (22-32); INR 1.2 INR; PROTHROMBIN TIME 12.4 SECONDS (9.0-12.0)
[2024-04-08 16:17] LABS: ALBUMIN 2.2 G/DL (3.4-5.0); ANION GAP 11 (8-16); BLOOD UREA NITROGEN 15 MG/DL (7-18); CHLORIDE 104 MMOL/L (99-107); CREATININE 1.15 MG/DL (0.60-1.10); GLUCOSE 96 MG/DL (70-104); SODIUM 138 MMOL/L (135-145); eCRCL 88 ML/MIN; eGFR 75 ML/MIN
[2024-04-08 16:59] LABS: POTASSIUM 4.6 MMOL/L (3.5-5.1)
[2024-04-08] MEDS: normal saline 1000ML IV soln IVB ONE ×2 (17:04→18:07)
[2024-04-08] MEDS ORDERED: heparin 10,000 units/1 ML INJ IV PRN (18:00)
[2024-04-08] MEDS: PERFLUTREN PROTEIN-A MICROSPHR (Optison) 0.22 MG/ML 3ML VIAL IV ONE (18:02)
[2024-04-08] MEDS ORDERED: morphine 2 MG/ML inj. syringe IV PRN (18:05)
[2024-04-08] MEDS ORDERED: magnesium hydroxide 30ml (MOM) UD suspension PO PRN (18:05)
[2024-04-08] MEDS ORDERED: potassium Cl 20mEq/100mL bag 100 ML IV PRN (18:05)
[2024-04-08] MEDS ORDERED: potassium CL 10mEq/100ml bag 100 ML IV PRN (18:05)
[2024-04-08] MEDS ORDERED: mag hydrox/Alum hydrox/simeth 30ml oral suspension PO PRN (18:05)
[2024-04-08] MEDS ORDERED: potassium Cl 20 mEq SR tablet PO PRN ×3 (18:05)
[2024-04-08] MEDS ORDERED: magnesium Cl slow-release 64mg tablet PO PRN (18:05)
[2024-04-08] MEDS ORDERED: acetaminophen 325mg tablet PO PRN (18:05)
[2024-04-08] MEDS ORDERED: magnesium sulf-water 4G/100mL 100 ML IV PRN (18:05)
[2024-04-08] MEDS ORDERED: potassium Cl 40MEQ/1/2NS 520ml 520 ML IV PRN (18:05)
[2024-04-08] MEDS ORDERED: magnesium sulf-water 2g/50mL 50 ML IV PRN (18:05)
[2024-04-08] MEDS ORDERED: potassium Cl 40MEQ/270ML bag 250 ML IV PRN (18:05)
[2024-04-08] MEDS: morphine 2 MG/ML inj. syringe IV ONE (18:07)
[2024-04-08] MEDS: aspirin 325mg tablet PO ONE (18:08)
[2024-04-08 18:27] LABS: PRO BRAIN NATRIURETIC PEPTIDE 7347 PG/ML (0-125)
[2024-04-08 18:34] LABS: D-DIMER 2.28 MG/L FEU (0-0.50)
[2024-04-08 18:35] LABS: ALANINE AMINOTRANSFERASE 67 U/L (12-78); ALBUMIN/GLOBULIN RATIO 0.5 (1.1-1.5); ALKALINE PHOSPHATASE 149 IU/L (46-116); ASPARTATE AMINO TRANSFERASE 64 U/L (10-37); BILIRUBIN,TOTAL 1.2 MG/DL (0.1-1.0); TOTAL PROTEIN 6.8 G/DL (6.4-8.2)
[2024-04-08] MEDS: heparin 10,000 units/1 ML INJ IV ONE (18:35)
[2024-04-08] MEDS: heparin 25,000 UNIT/250ml bag 250 ML IV PRN (18:36)
[2024-04-08 18:37] LABS: BILIRUBIN,DIRECT 0.4 MG/DL (0-0.3); HEMOGLOBIN A1C 6.3 % (4.5-6.2)
[2024-04-08] MEDS: MESSAGE TO NURSING IV ONE (18:39)
[2024-04-08] MEDS: morphine 2 MG/ML inj. syringe IV PRN (19:50)
[2024-04-08 20:00] VITALS: BP 105/83; PULSE 96; RESP 12; TEMP 96; O2SAT 98
[2024-04-08] MEDS: clopidogrel 300mg tablet PO ONE (20:16)
[2024-04-08 20:24] LABS: BILIRUBIN,URINE NEGATIVE (Neg); CLARITY,URINE CLEAR (Clear); COLOR,URINE AMBER (Yellow); GLUCOSE, URINE NEGATIVE (Neg); KETONES,URINE NEGATIVE (Neg); LEUKOCYTE ESTERASE ,URINE NEGATIVE (Neg); NITRITES, URINE NEGATIVE (Neg); OCCULT BLOOD,URINE SMALL (Neg); PH,URINE 6.5 (4.8-8.0); PROTEIN,URINE >=300 mg/dl (Neg)
[2024-04-08] MEDS: pantoprazole 40 MG vial IV SCH (20:28)
[2024-04-08 20:31] LABS: UA COLLECTION TYPE NON-SPECIFIED
[2024-04-08 20:33] LABS: BACTERIA,URINE FEW /HPF (Neg); SQUAMOUS EPITHELIAL CELL,UR FEW /LPF (FEW); WBC,URINE 0-4 /HPF (0-4)
[2024-04-08 20:35] LABS: URINE AMPHETAMINE SCREEN POSITIVE (Neg); URINE BARBITUATE SCREEN NEGATIVE (Neg); URINE BENZODIAZEPINES SCREEN NEGATIVE (Neg); URINE CANNABINOID SCREEN POSITIVE (Neg); URINE COCAINE SCREEN NEGATIVE (Neg); URINE METHADONE SCREEN NEGATIVE (Neg); URINE OPIATE SCREEN POSITIVE (Neg); URINE PHENCYCLIDINE SCREEN NEGATIVE (Neg)
[2024-04-08 21:00] VITALS: RESP 24; O2SAT 97
[2024-04-08] MEDS: ondansetron/PF 4mg/2ml inj IV PRN (21:42)
[2024-04-08] MEDS: normal saline 1000ml 1,000 ML IV SCH (21:54)
[2024-04-08] MEDS: LORazepam 2 mg/ml vial IV ONE (23:22)
[2024-04-09] VITALS (28 sets, daily range): BP systolic 86–178; BP diastolic 20–116; PULSE 75–106; RESP 14–30; TEMP 97.5; O2SAT 77–98
[2024-04-09] MEDS: MESSAGE TO NURSING IV ONE (03:22)
[2024-04-09] MEDS ORDERED: iohexol 350MG/ML 100ml bottle IV ONE ×2 (05:51→14:59)
[2024-04-09 06:01] LABS: BASOPHILS % (AUTO) 0.2 % (0-1); EOSINOPHILS % (AUTO) 0 % (0-6); HEMATOCRIT 52.3 % (42.0-52.0); HEMOGLOBIN 17.1 g/dl (14.0-17.9); LYMPHOCYTES # (AUTO) 1.7 X10'3 (1.1-4.8); LYMPHOCYTES % (AUTO) 12.1 % (21-51); MEAN CORPUSCULAR HEMOGLOBIN 33.6 PG (27.0-31.0); MEAN CORPUSCULAR HGB CONC 32.7 g/dL (33.0-36.5); MEAN CORPUSCULAR VOLUME 102.7 FL (78-98); MEAN PLATELET VOLUME 9.6 FL (7.4-10.4); MONOCYTES # (AUTO) 1.1 X10'3 (0-0.9); MONOCYTES % (AUTO) 7.6 % (2-12); NEUTROPHILS # (AUTO) 11.5 X10'3 (1.8-7.7); NEUTROPHILS % (AUTO) 80.1 % (42-75); PLATELET COUNT 140 X10'3 (140-440); RED BLOOD COUNT 5.09 X10'6 (4.70-6.10); RED CELL DISTRIBUTION WIDTH 15.2 % (11.5-14.5); WHITE BLOOD COUNT 14.4 X10'3 (4.5-11.0)
[2024-04-09 06:17] LABS: ALBUMIN 2.6 G/DL (3.4-5.0); ALBUMIN/GLOBULIN RATIO 0.6 (1.1-1.5); ALKALINE PHOSPHATASE 166 IU/L (46-116); ANION GAP 18 (8-16); BILIRUBIN,TOTAL 3.5 MG/DL (0.1-1.0); BLOOD UREA NITROGEN 24 MG/DL (7-18); BUN/CREATININE RATIO 9.4 (10.0-20.0); CALCIUM 7.7 MG/DL (8.5-10.1); CHLORIDE 104 MMOL/L (99-107); CHOL/HDL RATIO 2.5 (0.00-4.99); CHOLESTEROL 109 MG/DL (0-200); CREATININE 2.54 MG/DL (0.60-1.10); HDL CHOLESTEROL 43 MG/DL (35-60); LDL CHOLESTEROL 71 MG/DL (50-100); MAGNESIUM 2.1 MG/DL (1.5-2.4); SODIUM 138 MMOL/L (135-145); TOTAL CARBON DIOXIDE 15.6 MMOL/L (24-32); TOTAL PROTEIN 7.3 G/DL (6.4-8.2); TRIGLYCERIDES 97 MG/DL (20-135); eCRCL 40 ML/MIN; eGFR 30 ML/MIN
[2024-04-09 06:23] LABS: GLUCOSE 22 MG/DL (70-104); POTASSIUM 6.7 MMOL/L (3.5-5.1)
[2024-04-09] MEDS: dextrose 50%-water 50ml dispensing syringe IV ONE ×2 (06:40→06:48)
[2024-04-09 06:47] LABS: ALANINE AMINOTRANSFERASE 1921 U/L (12-78); ASPARTATE AMINO TRANSFERASE 3311 U/L (10-37)
[2024-04-09] MEDS: DOPamine 400mg/D5W 250ml 250 ML IV ONE (06:47)
[2024-04-09] MEDS: NORepinephrine 8mg/ 250ml NS 250 ML IV ONE (06:47)
[2024-04-09] MEDS: Dextrose 10%-water IV solution 1,000 ML IV SCH (06:55)
[2024-04-09] MEDS: propofol 1000mg/100ml bottle 100 ML IV ONE (06:56)
[2024-04-09 07:10] LABS: ABG OXYGEN SATURATION 98.2 % (94.0-98.0); ABG PCO2 (T) 37.6 mmHg (35.0-48.0); ABG PH (T) 6.926 (7.350-7.450); FCOHb 0.4 % (0.5-1.5); FHHb 1.8 % (0.0-5.0); FMetHb 0.2 % (0.0-1.5); FO2Hb 97.6 % (94.0-98.0); MODE VENT - AC; PATIENT TEMPERATURE 34.4; PEEP 5 cm H2O; RESPIRATORY RATE 14 b/min; TIDAL VOLUME 450 mL; TOTAL HEMOGLOBIN 15.9 G/dl (13.5-17.5)
[2024-04-09] MEDS: sodium bicarbonate (8.4%) 1 mEq/ml syringe ONE (07:24)
[2024-04-09 07:32] LABS: BASOPHILS % (AUTO) 0.3 % (0-1); EOSINOPHILS % (AUTO) 0.1 % (0-6); HEMATOCRIT 49.3 % (42.0-52.0); HEMOGLOBIN 15.5 g/dl (14.0-17.9); LYMPHOCYTES # (AUTO) 1.6 X10'3 (1.1-4.8); LYMPHOCYTES % (AUTO) 15.2 % (21-51); MEAN CORPUSCULAR HEMOGLOBIN 33.6 PG (27.0-31.0); MEAN CORPUSCULAR HGB CONC 31.4 g/dL (33.0-36.5); MEAN CORPUSCULAR VOLUME 106.9 FL (78-98); MEAN PLATELET VOLUME 10.3 FL (7.4-10.4); MONOCYTES # (AUTO) 0.6 X10'3 (0-0.9); MONOCYTES % (AUTO) 5.5 % (2-12); NEUTROPHILS # (AUTO) 8.2 X10'3 (1.8-7.7); NEUTROPHILS % (AUTO) 78.9 % (42-75); PLATELET COUNT 111 X10'3 (140-440); RED BLOOD COUNT 4.62 X10'6 (4.70-6.10); RED CELL DISTRIBUTION WIDTH 15.7 % (11.5-14.5); WHITE BLOOD COUNT 10.4 X10'3 (4.5-11.0)
[2024-04-09 07:47] LABS: APTT 45 SECONDS (22-32); INR 2.2 INR; PROTHROMBIN TIME 21.4 SECONDS (9.0-12.0)
[2024-04-09] MEDS: ALTEPLASE 100 MG/100 ML IV ONE (07:47)
[2024-04-09] MEDS: sodium bicarbonate 1meq/ml inj 150 ML in dextrose 5%-water 1,000 ML IV SCH (07:48)
[2024-04-09] MEDS: aspirin 81mg, enteric-coated 1 TAB TABLET.DR PO SCH (08:00)
[2024-04-09] MEDS ORDERED: ALTEPLASE 100 MG/100 ML IV ONE (08:00)
[2024-04-09] MEDS ORDERED: calcium chloride 100 MG/1 ML inj IV ONE (08:00)
[2024-04-09] MEDS: clopidogrel 75mg tablet PO SCH (08:00)
[2024-04-09] MEDS: atorvastatin 20mg tablet PO SCH (08:00)
[2024-04-09] MEDS ORDERED: sodium bicarbonate (8.4%) 1 mEq/ml syringe ONE (08:00)
[2024-04-09 08:10] LABS: ALBUMIN 1.7 G/DL (3.4-5.0); ALBUMIN/GLOBULIN RATIO 0.5 (1.1-1.5); ALKALINE PHOSPHATASE 129 IU/L (46-116); ANION GAP 18 (8-16); BILIRUBIN,TOTAL 2.5 MG/DL (0.1-1.0); BLOOD UREA NITROGEN 24 MG/DL (7-18); BUN/CREATININE RATIO 11.2 (10.0-20.0); C-REACTIVE PROTEIN 5.07 MG/DL (0.0-0.5); CALCIUM 7.6 MG/DL (8.5-10.1); CHLORIDE 105 MMOL/L (99-107); CREATININE 2.14 MG/DL (0.60-1.10); GLUCOSE 170 MG/DL (70-104); MAGNESIUM 2.2 MG/DL (1.5-2.4); PHOSPHORUS 7.8 MG/DL (2.3-4.5); POTASSIUM 5.7 MMOL/L (3.5-5.1); SODIUM 139 MMOL/L (135-145); TOTAL CARBON DIOXIDE 15.7 MMOL/L (24-32); TOTAL PROTEIN 5.3 G/DL (6.4-8.2); eCRCL 47 ML/MIN; eGFR 37 ML/MIN
[2024-04-09 08:36] LABS: ALANINE AMINOTRANSFERASE 2352 U/L (12-78)
[2024-04-09 08:37] LABS: ASPARTATE AMINO TRANSFERASE 4172 U/L (10-37)
[2024-04-09 08:49] LABS: D-DIMER 16.74 MG/L FEU (0-0.50); FIBRINOGEN 446 MG/DL (177-424)
[2024-04-09] MEDS: FENTANYL-0.9 % NACL/PF 100 ML IV SCH (13:13)
[2024-04-09] MEDS: propofol 1000mg/100ml bottle 100 ML IV SCH (13:13)
[2024-04-09 13:38] LABS: ANION GAP 16 (8-16); BLOOD UREA NITROGEN 39 MG/DL (7-18); CALCIUM 7.3 MG/DL (8.5-10.1); CHLORIDE 103 MMOL/L (99-107); CREATININE 2.29 MG/DL (0.60-1.10); GLUCOSE 175 MG/DL (70-104); SODIUM 136 MMOL/L (135-145); TOTAL CARBON DIOXIDE 17.1 MMOL/L (24-32); eCRCL 44 ML/MIN; eGFR 34 ML/MIN
[2024-04-09 13:54] LABS: POTASSIUM 6.3 MMOL/L (3.5-5.1)
[2024-04-09 14:15] LABS: ABG HCO3 19.4 mmol/L (21.0-28.0); ABG OXYGEN SATURATION 97.4 % (94.0-98.0); ABG PCO2 (T) 31.9 mmHg (35.0-48.0); ABG PH (T) 7.404 (7.350-7.450); ABG PO2 (T) 96.2 mmHg (83.0-108.0); FCOHb 0.8 % (0.5-1.5); FHHb 2.6 % (0.0-5.0); FMetHb 0.3 % (0.0-1.5); FO2Hb 96.3 % (94.0-98.0); MODE VENT - AC; PATIENT TEMPERATURE 37.4; PEEP 5 cm H2O; RESPIRATORY RATE 14 b/min; TIDAL VOLUME 450 mL; TOTAL HEMOGLOBIN 15.5 G/dl (13.5-17.5)
[2024-04-09] MEDS: mineral oil/petrolatum ophthal oint EACHEYE SCH (14:24)
[2024-04-09] MEDS ORDERED: acetaminophen 325mg tablet OGT PRN (15:21)
[2024-04-09] MEDS ORDERED: aspirin 81mg tab.chew OGT SCH ×2 (15:22→19:23)
[2024-04-09] MEDS ORDERED: clopidogrel 75mg tablet OGT SCH (15:22)
[2024-04-09] MEDS ORDERED: atorvastatin 20mg tablet OGT SCH (15:22)
[2024-04-09] MEDS ORDERED: mag hydrox/Alum hydrox/simeth 30ml oral suspension OGT PRN (15:23)
[2024-04-09] MEDS ORDERED: POTASSIUM CHLORIDE 20 MEQ/15 ML oral solution OGT PRN ×3 (15:24→15:26)
[2024-04-09] MEDS ORDERED: magnesium hydroxide 30ml (MOM) UD suspension OGT PRN (15:24)
[2024-04-09] MEDS ORDERED: UNABLE TO OBTAIN (15:30)
[2024-04-09] MEDS: ringers solution, lacted 1,000 ML IV ONE ×2 (15:50→18:38)
[2024-04-09] MEDS: sodium polystyrene sulfonate 15gm/60ml oral suspension NG ONE (16:19)
[2024-04-09] MEDS: albumin (human) 25% 100 ML IV solution IV ONE (17:41)
[2024-04-09] MEDS: albumin (Human) 5% 250ml 250 ML IV SCH (19:45)
[2024-04-09] MEDS: sodium polystyrene sulfonate 15gm/60ml oral suspension PO SCH (22:24)
[2024-04-09] MEDS: piperacillin/tazo 3.375gm/50ml 50 ML IV SCH (22:24)
[2024-04-09] MEDS: VANCOMYCIN 1GM 200ML H20 (PEG) 200 ML IV SCH (22:24)
[2024-04-09] MEDS: morphine 10mg/0.5ml (conc. morphine) oral syringe PO PRN (23:30)
[2024-04-09] MEDS: LORazepam 2 mg/ml vial IV PRN (23:47)
[2024-04-10] VITALS: BP 71/26; PULSE 30; RESP 0
[2024-04-10] MEDS ORDERED: atropine 0.1mg/ml 10ml syringe ONE (00:01)
[2024-04-10] MEDS ORDERED: mineral oil/petrolatum ophthal oint EACHEYE SCH (08:00)
[2024-04-12] MEDS ORDERED: VANCOMYCIN LEVEL IV ONE (18:30)
== END 2024-04-10 00:01 | DRG 134 ==
LOC: ER 14:11 → ED HOLD 17:53 → ORTHO 4S 20:43 → CICU 2S 04-09 06:49
PROVIDERS: ADMIT Family Medicine; ATTEND Family Medicine
PROC: B3251ZZ Computerized Tomography (CT Scan) of Bilateral Common Carotid Arteries using Low Osmolar Contrast (ICD-10-PCS; principal; 2024-04-08)
PROC: B32R1ZZ Computerized Tomography (CT Scan) of Intracranial Arteries using Low Osmolar Contrast (ICD-10-PCS; 2024-04-08)
PROC: B3281ZZ Computerized Tomography (CT Scan) of Bilateral Internal Carotid Arteries using Low Osmolar Contrast (ICD-10-PCS; 2024-04-08)
PROC: 5A1935Z Respiratory Ventilation, Less than 24 Consecutive Hours (ICD-10-PCS; 2024-04-09)
PROC: 5A12012 Performance of Cardiac Output, Single, Manual (ICD-10-PCS; 2024-04-09)
PROC: 0BH17EZ Insertion of Endotracheal Airway into Trachea, Via Natural or Artificial Opening (ICD-10-PCS; 2024-04-09)
PROC: B3251ZZ Computerized Tomography (CT Scan) of Bilateral Common Carotid Arteries using Low Osmolar Contrast (ICD-10-PCS; 2024-04-09)
PROC: B32R1ZZ Computerized Tomography (CT Scan) of Intracranial Arteries using Low Osmolar Contrast (ICD-10-PCS; 2024-04-09)
PROC: B3281ZZ Computerized Tomography (CT Scan) of Bilateral Internal Carotid Arteries using Low Osmolar Contrast (ICD-10-PCS; 2024-04-09)
PROC: 3E03317 Introduction of Other Thrombolytic into Peripheral Vein, Percutaneous Approach (ICD-10-PCS; 2024-04-09)
DX: I26.92 Saddle embolus of pulmonary artery without acute cor pulmonale (principal); J96.01 Acute respiratory failure with hypoxia; I46.9 Cardiac arrest, cause unspecified; G93.40 Encephalopathy, unspecified; I31.39 Other pericardial effusion (noninflammatory); I50.22 Chronic systolic (congestive) heart failure; I42.9 Cardiomyopathy, unspecified; J43.9 Emphysema, unspecified; M54.9 Dorsalgia, unspecified; F17.210 Nicotine dependence, cigarettes, uncomplicated; F15.10 Other stimulant abuse, uncomplicated; F11.10 Opioid abuse, uncomplicated; F12.10 Cannabis abuse, uncomplicated; E86.1 Hypovolemia; R68.0 Hypothermia, not associated with low environmental temperature; Z66 Do not resuscitate; Z79.899 Other long term (current) drug therapy; Z82.0 Family history of epilepsy and other diseases of the nervous system; Z63.4 Disappearance and death of family member; Z86.711 Personal history of pulmonary embolism; Z79.01 Long term (current) use of anticoagulants
CPT/HCPCS: 36415; 36600; 70450; 70496; 70498; 71045; 80048; 80053; 80061; 80076; 80305; 81001; 82803; 82948; 83036; 83605; 83735; 83880; 84100; 84484; 85018; 85025; 85379; 85384; 85610; 85730; 86140; 87040; 87070; 87081; 92950; 93005; 93308; 94760; 99285; C1751; C1758; G0378; J0171; J0461; J1644; J2060; J2270; J2405; J2470; J2543; J2704; J2997; J3010; J3372; J3490; J7030; J7040; J7070; J7120; J8597; P9045; P9047; Q9967